=== PATIENT | male | born 1950 | race Caucasian/White ===

== ENCOUNTER 2016-07-09 14:38 | Outpatient (CLI) | payer MEDICARE, OTHER ==
[~2016-07-09] VITALS: Ht 182.9 cm; Wt 92.2 kg
[~2016-07-09 14:38] MED LIST: AZIT250T5 PO; HYDR-3720 PO; LEVO500T69 PO; LISI10TA2 PO; LISI20TA PO; MED FOR HPTN; ONDA4TAB8 PO; OXC5T PO; OXYC-12 PO; OXYC-197 PO; OXYC-272 PO; PRD20T PO; RIVA10TA PO; RIVA15TA PO
[2016-07-09 14:50] VITALS: BP 141/70
[2016-07-09 15:18] LABS: BASOPHILS % (AUTO) 0 % (0-10); EOSINOPHILS # (AUTO) 0.1 10^3/uL (0.0-0.3); EOSINOPHILS % (AUTO) 1 % (0-10); LYMPHOCYTES # (AUTO) 2.6 X 10^3 (1.0-4.0); LYMPHOCYTES % (AUTO) 31 % (12-44); MEAN CORPUSCULAR HEMOGLOBIN 28 PG (25-34); MEAN CORPUSCULAR HGB CONC 35 G/DL (32-36); MEAN CORPUSCULAR VOLUME 82 FL (80-99); MEAN PLATELET VOLUME 10.5 FL (7.4-10.4); MONOCYTES # (AUTO) 0.6 X 10^3 (0.0-1.0); MONOCYTES % (AUTO) 7 % (0-12); NEUTROPHILS # (AUTO) 5.3 X 10^3 (1.8-7.8); NEUTROPHILS % (AUTO) 62 % (42-75); PLATELET COUNT 203 10^3/uL (130-400); RED BLOOD COUNT 4.93 10^6/uL (4.35-5.85); RED CELL DISTRIBUTION WIDTH 13.7 % (10.0-14.5); WHITE BLOOD COUNT 8.6 10^3/uL (4.3-11.0)
[2016-07-09 15:37] LABS: ALANINE AMINOTRANSFERASE 65 U/L (0-55); ANION GAP 9 MMOL/L (5-14); ASPARTATE AMINO TRANSFERASE 24 U/L (5-34); BILIRUBIN,TOTAL 0.4 MG/DL (0.1-1.0); BLOOD UREA NITROGEN 18 MG/DL (7-18); BUN/CREATININE RATIO 21; CALCIUM 8.2 MG/DL (8.5-10.1); CARBON DIOXIDE 21 MMOL/L (21-32); CHLORIDE 104 MMOL/L (98-107); CREATININE SERUM 0.85 MG/DL (0.60-1.30); GFR ESTIMATED > 60; GLUCOSE 104 MG/DL (70-105); POTASSIUM 3.6 MMOL/L (3.6-5.0); SODIUM 134 MMOL/L (135-145); TOTAL PROTEIN 6.4 G/DL (6.4-8.2)
[2016-07-12] MEDS ORDERED: HYDR-3812 PO (14:51)
== END 2016-07-09 15:05 | disposition home or self-care (01) ==
LOC: PREOP 14:38
PROVIDERS: ATTEND Surgery
DX: Z01.812 Encounter for preprocedural laboratory examination (principal); Z11.2 Encounter for screening for other bacterial diseases; K80.20 Calculus of gallbladder without cholecystitis without obstruction
CPT/HCPCS: 36415; 80053; 85025; 87081

== ENCOUNTER 2016-07-12 11:06 | Day surgery (SDC) | payer MEDICARE, OTHER ==
[~2016-07-12] VITALS: Ht 182.9 cm; Wt 92.2 kg
[2016-07-12] MEDS ORDERED: FAMOTIDINE 20MG/2ML IV (PEPCID) IV ONE (11:45)
--- NOTE | 2016-07-12 11:46 | Progress Note-Pre Operative ---
Pre-Operative Progress Note H&P Reviewed The H&P was reviewed, patient examined and no changes noted. Date H&P Reviewed: Jul 12, 2016 Time H&P Reviewed: 11:45 Pre-Operative Diagnosis: gallstones KOFI STERN MD Jul 12, 2016 11:45 am
[2016-07-12] MEDS ORDERED: ceFAZolin 1,000 MG (ANCEF) VIAL ONE (11:49)
[2016-07-12] MEDS ORDERED: metroNIDAZOLE 500MG/100ML IVPB 100 ML ONE (11:50)
[2016-07-12] MEDS ORDERED: NORMAL SALINE (BAXTER MINI) 50 ML IV ONE (11:50)
[2016-07-12] MEDS ORDERED: BUP/EPI 0.25% 1:200,000 (MARCAINE) 30 ML VIAL ONE (11:57)
[2016-07-12 12:00] VITALS: BP 167/77
[2016-07-12] MEDS: LACTATED RINGERS 1,000 ML IV PRN ×2 (12:03→14:28)
[2016-07-12] MEDS ORDERED: CATHETER FLUSH 10 ML SYR IV PRN (12:30)
[2016-07-12] MEDS ORDERED: metroNIDAZOLE 500 MG/100 ML IVPB (PRE-MIX) IV ONE (12:30)
[2016-07-12] MEDS ORDERED: ceFAZolin 1 GM/NS 50 ML IVPB IV ONE ×2 (12:30)
[2016-07-12] MEDS ORDERED: fentaNYL INJECTION 250 MCG/5 ML AMP ONE (13:26)
[2016-07-12] MEDS ORDERED: MIDAZOLAM 2 MG/2 ML (VERSED) VIAL ONE (13:26)
[2016-07-12] MEDS ORDERED: proPOfol 200 MG/20 ML (DIPRIVAN) VIAL IV ONE (13:26)
[2016-07-12] MEDS ORDERED: ROCURONIUM 50 MG/5 ML (ZEMURON) VIAL IV ONE ×2 (13:26→13:46)
[2016-07-12] MEDS ORDERED: LACTATED RINGERS 1,000 ML IV ONE ×2 (13:46→14:35)
[2016-07-12] MEDS ORDERED: ONDANSETRON 4 MG/2 ML (SDV) Z0FRAN ONE (13:46)
[2016-07-12] MEDS ORDERED: morphine INJ 10 MG/ML 1ML (SYR OR VIAL) ONE ×2 (13:51→15:28)
[2016-07-12] MEDS ORDERED: GLYCOPYRROLATE 0.2 MG/ML (ROBINUL) 2 ML VIAL ONE (14:35)
[2016-07-12] MEDS ORDERED: ESMOLOL 100 MG/10 ML (BREVIBLOC) VIAL ONE (14:35)
[2016-07-12] MEDS ORDERED: hydrALAZINE (APESOLINE) 20 MG/ML VIAL ONE (14:35)
[2016-07-12] MEDS ORDERED: NEOSTIGMINE (BLOXIVERZ ) 1 MG/1ML 10 ML VIAL ONE (14:35)
[2016-07-12] MEDS ORDERED: SEVOFLURANE (ULTANE) 15 ML INHAL SOLN ONE (14:45)
[2016-07-12] MEDS ORDERED: KETOROLAC 30 MG/ML VIAL ONE (14:45)
--- NOTE | 2016-07-12 14:50 | Progress Note-Post Operative ---
Post-Operative Progess Note Pre-Operative Diagnosis gallstones Post-Operative Diagnosis same Post-Op Procedure Note Date of Procedure: Jul 12, 2016 Name of Procedure: robotic-assisted cholecystectomy Anesthesia Type Gen. Estimated blood loss (mL): minimal Specimen(s) collected gallbladder KOFI STERN MD Jul 12, 2016 2:50 pm
[2016-07-12] MEDS ORDERED: HYDR-3812 PO (14:51)
--- NOTE | 2016-07-12 14:51 | Discharge Inst-Simple/Standard ---
Discharge Inst-Standard Discharge Medications New, Converted or Re-Newed RX: RX on Chart Patient Instructions/Follow Up Plan of Care/Instructions/FU: dressings off in 48 hours. Incentive spirometry. Follow-up in 3 weeks. Activity as Tolerated: Yes Discharge Diet: No Restrictions KOFI STERN MD Jul 12, 2016 2:51 pm
[2016-07-12] MEDS ORDERED: BUP/EPI 0.25% 1:200,000 (MARCAINE) 30 ML VIAL INJ ONE (15:00)
[2016-07-12] MEDS ORDERED: MEPERIDINE (DEMEROL) INJ 50 MG/ML IVP PRN ×2 (15:15→16:45)
[2016-07-12] MEDS ORDERED: ONDANSETRON 4 MG/2 ML (SDV) Z0FRAN IVP PRN (15:15)
[2016-07-12] MEDS ORDERED: morphine INJ 10 MG/ML 1ML (SYR OR VIAL) IVP PRN (15:15)
[2016-07-12 16:10] VITALS: BP_SYST 100; BP_DIAS 61; BP_DIAS 62
[2016-07-12] MEDS ORDERED: MEPERIDINE (DEMEROL) INJ 100 MG/ML ONE (16:38)
[2016-07-12 16:40] VITALS: BP 130/57
[2016-07-12 17:10] VITALS: BP 118/53
[2016-07-12 17:40] VITALS: BP 118/53
--- NOTE | 2016-07-13 08:03 | OPERATIVE REPORT ---
PROCEDURE PHYSICIAN: KOFI STERN DATE OF PROCEDURE: 07/12/2016 PREOPERATIVE DIAGNOSIS: Cholelithiasis. DIAGNOSIS: Cholelithiasis. OPERATION: Robotic assisted cholecystectomy. SURGEON: Mateus ANESTHESIA: General anesthesia. BLOOD LOSS: Minimal. FLUIDS: 1500 mL of crystalloids. TYPE OF WOUND: Type II (clean-contaminant wound). INDICATION FOR THE PROCEDURE: This gentleman presented with symptomatic gallstones. He was offered robotic assisted cholecystomy. Informed consent was obtained after reviewing the operative details and complications of wound infection and bile leak. DESCRIPTION OF PROCEDURE: He was placed supine on the operating table and general anesthesia induced using an endotracheal tube. A gram of Ancef and 500 mg of Flagyl were administered intravenously as prophylaxis against wound infection. Sequential compression devices were placed around his legs, to minimize the risk of venous thrombosis. Abdomen was prepared and draped in the usual sterile manner. A vertical incision was made on the umbilicus itself and a pre-existing defect gently opened up. A 12 mm trocar was placed by careful inspection and the pneumoperitoneum established to an intra-abdominal pressure of 15 mmHg, using carbon dioxide insufflation. Under direct view. Anatomy was visualized using the high definition, 3 dimensional laparoscope associated with the da Remy system. Under direct view, I placed an 8 mm cannula over each side of the abdomen, followed by a 5 mm trocar over the left upper quadrant. The patient was then turned into steep reverse Trendelenburg position with the right side tilted up. The robotic system was then docked in place. Omentum was found encircling the gallbladder. It was carefully using hook cautery revealing a thickened gallbladder due to chronic cholecystitis. The fundus was retracted cephalad and infundibulum grasped with a pair of Cadiere forceps. Thickened tissue around the neck of the gallbladder was incised using hook cautery, delineating the cystic duct and artery. Both were divided between locking clips. Cholecystectomy was then completed using hook cautery. The gallbladder was then placed in an Endo Catch bag and removed via the umbilical trocar site. The fascia over the umbilical incision was then closed using number 1 Vicryl. The skin was closed using 4-0 Vicryl, in a subcuticular fashion. 0.25% Marcaine with epinephrine was infiltrated along the incisions, both preemptively and at the conclusion of the operation. He tolerated the procedure well, was extubated in the operating room and taken to the recovery room in a stable condition. Job ID: [id number] Dictated Date: 07/12/2016 14:49:57 Hand Drawer In Date: 07/13/2016 07:55:15 / joseph HOWE
== END 2016-07-12 17:40 | disposition home or self-care (01) ==
LOC: SDC 11:06
PROVIDERS: ATTEND Surgery
DX: K80.10 Calculus of gallbladder with chronic cholecystitis without obstruction (principal)
CPT/HCPCS: 88304; 94664

== ENCOUNTER → 2017-01-16 | Outpatient (CLI) | payer MEDICARE ==
[~2017-01-16] MED LIST changes: +CATHETER FLUSH 10 ML SYR IV PRN; +HYDR-3812 PO; +IOHEXOL 350 MG/ML 100 ML (OMNIPAQUE 350) VIAL IV ONE; +NS 100 ML (IVPB) BAG IV ONE
[2017-01-16 11:43] LABS: BLOOD UREA NITROGEN 14 MG/DL (7-18); BUN/CREATININE RATIO 16; CREATININE SERUM 0.87 MG/DL (0.60-1.30); GFR ESTIMATED > 60
--- NOTE | 2017-01-16 15:39 | Diagnostic Imaging Report ---
PROCEDURE: CT chest with contrast only. TECHNIQUE: Multiple contiguous axial images were obtained through the chest after administration of intravenous contrast. INDICATION: Left lung nodule. FINDINGS: There is a calcified granuloma in the medial aspect of the left lower lobe measuring 1 cm. This corresponds with the nodule seen on chest x-ray of 06/30/2016 with no suspicious nodule, mass or consolidation identified. A questionable nodule in the lung base measuring 1.1 cm on the left side appears to relate to a diaphragm based or even possibly lobulated contour of the spleen and not necessarily a true pulmonary nodule. Another nodule measuring 6 mm in the medial aspect of the left lung base posteriorly is also seen. A followup CT scan to ensure stability in 6 months is suggested. The right lung demonstrates no significant consolidation. Minimal atelectasis of the right lung base is seen. The apices demonstrate mild paraseptal emphysema changes. The heart size is normal. The thoracic aorta is normal in caliber. The ean and the mediastinum demonstrate no significant enlarged lymph nodes. The axilla on both sides demonstrate no lymphadenopathy. In the superior lateral aspect of the right hepatic lobe, there is an indeterminate 1.8 cm hypodense lesion seen. Another hypodense lesion in the liver dome measuring 8mm is also noted. The osseous structures demonstrate degenerative changes. IMPRESSION: 1. There are pulmonary nodules in the left lung base 6 mm, indeterminate. Another nodule measuring 1.1 cm projecting into the left lung base could be a lobulation of the spleen or arising from the left hemidiaphragm. [address] chest is recommended to reevaluate these likely benign findings. 2. Incidental note of a 1.8 cm hypodense right hepatic lobe mass. Further evaluation with liver mass protocol enhanced MRI or CT scan of the abdomen is recommended for better evaluation. Dictated by: Dictated on workstation # [id number]
== END ==
LOC: RAD 10:32
PROVIDERS: ATTEND Nurse Practitioner Community Health
DX: R91.8 Other nonspecific abnormal finding of lung field (principal); R16.0 Hepatomegaly, not elsewhere classified
CPT/HCPCS: 36415; 71260; 82565; 84520

== ENCOUNTER 2018-01-02 20:43 | Emergency (ER) | payer MEDICARE ==
[~2018-01-02] VITALS: Ht 182.9 cm; Wt 92.2 kg
[~2018-01-02 20:43] MED LIST changes: +ACHD5005 PO; +AZIT250T12 PO; -AZIT250T5 PO; -CATHETER FLUSH 10 ML SYR IV PRN; -HYDR-3812 PO; -IOHEXOL 350 MG/ML 100 ML (OMNIPAQUE 350) VIAL IV ONE; -NS 100 ML (IVPB) BAG IV ONE
[2018-01-02] MEDS ORDERED: SILD100T (20:53)
[2018-01-02] MEDS ORDERED: OXYC-464 (20:53)
[2018-01-02 21:02] LABS: BILIRUBIN,URINE NEGATIVE (NEGATIVE); CLARITY,URINE CLEAR; COLOR,URINE YELLOW; GLUCOSE, URINE (UA) NEGATIVE (NEGATIVE); KETONES,URINE NEGATIVE (NEGATIVE); LEUKOCYTE ESTERASE ,URINE 1+ (NEGATIVE); NITRITE,URINE NEGATIVE (NEGATIVE); PH,URINE 5 (5-9); PROTEIN,URINE NEGATIVE (NEGATIVE); UROBILINOGEN,URINE 1 MG/DL (NORMAL)
--- NOTE | 2018-01-02 21:05 | ED Back Pain ---
General Chief Complaint: Back Problems Stated Complaint: BACK PAIN Nursing Triage Note: RIGHT FLANK PAIN X2 DAYS, NO INJURY Nursing Sepsis Screen: No Definite Risk Source of Information: Patient Exam Limitations: No Limitations History of Present Illness Date Seen by Provider: Jan 02, 2018 Time Seen by Provider: 20:47 Initial Comments PT ARRIVES VIA POV FROM HOME C/O RIGHT FLANK PAIN SINCE Saturday12/31/17 PAIN COMES AND GOES INITIALLY STATES NOTHING WORSENS OR IMPROVES PAIN, LATER DURING ER STAY, PT STATES PAIN IS WORSE WITH ANY MOVEMENT, AND GOES AWAY WITH REST/REMAINING STILL TOOK 1 OXYCODONE YESTERDAY, STATES IT DID NOT HELP AT ALL. HAS NOT TAKEN ANYTHING ELSE FOR PAIN AT ANY TIME NO RADIATION OF PAIN NO PARESTHESIAS OR MOTOR DEFICITS NO URINARY SYMPTOMS NO NAUSEA/VOMITING NO INJURY, HEAVY LIFTING, ETC. NO HISTORY OF SIMILAR Other Comments PCP: [facility] Allergies and Home Medications Allergies Uncoded Allergies: Bleach (Allergy, Unknown, 04/14/14) Home Medications Cyclobenzaprine HCl 10 Mg Tablet, 10 MG PO Q8H Prescribed by: JOY GARIBAY on 01/02/182216 Lisinopril 20 Mg Tablet, 20 MG PO DAILY, (Reported) Meloxicam 15 Mg Tablet, 15 MG PO DAILY Prescribed by: JOY GARIBAY on 01/02/182216 Patient Home Medication List Home Medication List Reviewed: Yes Constitutional: no symptoms reported Respiratory: no symptoms reported Cardiovascular: no symptoms reported Gastrointestinal: no symptoms reported Genitourinary: no symptoms reported Musculoskeletal: see HPI, back pain Skin: no symptoms reported Psychiatric/Neurological: No Symptoms Reported Past Tmnwldy-Jjumpm-Rqguuu Hx Patient Social History Alcohol Use: Denies Use Recreational Drug Use: No Smoking Status: Current Everyday Smoker (1 PPD) Type Used: Cigarettes 2nd Hand Smoke Exposure: Yes Recent Foreign Travel: No Contact w/Someone Who Travel: No Recent Infectious Disease Expo: No Recent Hopitalizations: No Immunizations Up To Date Tetanus Booster (TDap): Unknown Seasonal Allergies Seasonal Allergies: No Past Medical History Surgeries: Yes (LEFT TOTAL KNEE REPLACEMENT; LEFT ARM REPAIR TEEN--FELL THROUGH A GLASS WINDOW; LEFT QUADRICEPS TENDON REPAIR ) Gallbladder, Joint Replacement, Orthopedic Respiratory: No Cardiac: Yes Hypertension Neurological: No Reproductive Disorders: No Sexually Transmitted Disease: No Genitourinary: No Gastrointestinal: No Musculoskeletal: Yes (LEFT QUADRICEPS TENDON REPAIR; LEFT TOTAL KNEE REPLACEMENT) Endocrine: No HEENT: No Cancer: No Psychosocial: No Integumentary: No Blood Disorders: No Physical Exam Vital Signs Vital Signs - First Documented 01/02/18 20:50 Temp 97.2 Pulse 62 Resp 18 B/P (MAP) 125/107 (113) Pulse Ox 96 O2 Delivery Room Air Capillary Refill : Less Than 3 Seconds General Appearance: WD/WN, Other (UNKEMPT, REEKS OF CIGARETTES,WALKS SLIGHTLY BENT AT WAIST HOLDING RIGHT FLANK.) HEENT: Other (POOR DENTITION/MISSING TEETH) Neck: Normal Inspection Cardiovascular: Regular Rate, Rhythm, No Murmur, Normal Peripheral Pulses Respiratory: Normal Breath Sounds, No Accessory Muscle Use Gastrointestinal: Non Tender, Soft Back: CVA Tenderness (R) Extremity: Normal Range of Motion, Non Tender, No Calf Tenderness, No Pedal Edema Neurologic/Psychiatric: Alert, Oriented x3, No Motor/Sensory Deficits, Normal 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, 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 Norm as Tested Skin: Normal Color, Warm/Dry; No Rash Progress/Results/Core Measures Results/Orders Lab Results Laboratory Tests Test 01/02/18 20:56 01/02/18 21:25 Range/Units Urine Color YELLOW Urine Clarity CLEAR Urine pH 5 5-9 Urine Specific [place] 1.025 H 1.016-1.022 Urine Protein NEGATIVE NEGATIVE Urine Glucose (UA) NEGATIVE NEGATIVE Urine Ketones NEGATIVE NEGATIVE Urine Nitrite NEGATIVE NEGATIVE Urine Bilirubin NEGATIVE NEGATIVE Urine Urobilinogen 1 NORMAL MG/DL Urine Leukocyte Esterase 1+ H NEGATIVE Urine RBC (Auto) 3+ H NEGATIVE Urine RBC 5-10 H /HPF Urine WBC 0-2 /HPF Urine Crystals NONE /LPF Urine Bacteria NONE /HPF Urine Casts NONE /LPF Urine Mucus NEGATIVE /LPF Urine Culture Indicated NO White Blood Count 8.5 4.3-11.0 10^3/uL Red Blood Count 4.78 4.35-5.85 10^6/uL Hemoglobin 14.1 13.3-17.7 G/DL Hematocrit 41 40-54 % Mean Corpuscular Volume 85 80-99 FL Mean Corpuscular Hemoglobin 30 25-34 PG Mean Corpuscular Hemoglobin Concent 35 32-36 G/DL Red Cell Distribution Width 14.9 H 10.0-14.5 % Platelet Count 181 130-400 10^3/uL Mean Platelet Volume 10.4 7.4-10.4 FL Neutrophils (%) (Auto) 58 42-75 % Lymphocytes (%) (Auto) 31 12-44 % Monocytes (%) (Auto) 7 0-12 % Eosinophils (%) (Auto) 4 0-10 % Basophils (%) (Auto) 0 0-10 % Neutrophils # (Auto) 4.9 1.8-7.8 X 10^3 Lymphocytes # (Auto) 2.6 1.0-4.0 X 10^3 Monocytes # (Auto) 0.6 0.0-1.0 X 10^3 Eosinophils # (Auto) 0.3 0.0-0.3 10^3/uL Basophils # (Auto) 0.0 0.0-0.1 10^3/uL Sodium Level 140 135-145 MMOL/L Potassium Level 4.0 3.6-5.0 MMOL/L Chloride Level 109 H 98-107 MMOL/L Carbon Dioxide Level 21 21-32 MMOL/L Anion Gap 10 5-14 MMOL/L Blood Urea Nitrogen 13 7-18 MG/DL Creatinine 0.92 0.60-1.30 MG/DL Estimat Glomerular Filtration Rate > 60 BUN/Creatinine Ratio 14 Glucose Level 105 70-105 MG/DL Calcium Level 8.9 8.5-10.1 MG/DL Total Bilirubin 0.3 0.1-1.0 MG/DL Aspartate Amino Transf (AST/SGOT) 11 5-34 U/L Alanine Aminotransferase (ALT/SGPT) 9 0-55 U/L Alkaline Phosphatase 58 40-136 U/L Total Protein 6.4 6.4-8.2 GM/DL Albumin 4.1 3.2-4.5 GM/DL My Orders Orders - LANI,JOY K DO Ua Culture If Indicated (01/02/18 20:55) Ct Abd/Pelvis Wo(Kidney Stone) (01/02/18 21:14) Cbc With Automated Diff (01/02/18 21:14) Comprehensive Metabolic Panel (01/02/18 21:14) Ketorolac Injection (Toradol Injection) (01/02/18 21:14) Saline Lock/Iv-Start (01/02/18 21:14) Lactated Ringers (Lr 1000 Ml Iv Solution (01/02/18 21:14) Abdomen/Kub 1view (01/02/18 21:14) Orphenadrine Injection (Norflex Injectio (01/02/18 22:15) Rx-Cyclobenzaprine Tablet (Rx-Flexeril T (01/02/18 22:17) Rx-Naproxen (Rx-Naprosyn) (01/02/18 22:17) Orphenadrine Injection (Norflex Injectio (01/02/18 22:26) Rx-Cyclobenzaprine Tablet (Rx-Flexeril T (01/02/18 22:26) Rx-Naproxen (Rx-Naprosyn) (01/02/18 22:26) Medications Given in ED Current Medications Medications Dose Ordered Sig/Arturo Route Start Time Stop Time Status Last Admin Dose Admin Lactated Ringer's 1,000 ml @ 0 mls/hr Q0M ONCE IV 01/02/18 21:14 01/02/18 21:17 DC 01/02/18 21:25 0 MLS/HR Orphenadrine Citrate 60 mg ONCE ONCE IV 01/02/18 22:15 01/02/18 22:28 DC 01/02/18 22:32 60 MG Vital Signs/I&O 01/02/18 01/02/18 01/02/18 20:50 21:25 22:33 Temp 97.2 97.2 97.2 Pulse 62 62 Resp 18 18 B/P (MAP) 125/107 (113) 125/107 (113) Pulse Ox 96 96 O2 Delivery Room Air 01/03/18 00:00 Intake Total 1000 ml Balance 1000 ml Blood Pressure Mean: 113 Progress Progress Note : Progress Note SOME RELIEF OF PAIN WITH TORADOL, BUT HAS NO PAIN WHEN HE IS LAYING STILL. Diagnostic Imaging Comments KUB--NO ACUTE PROCESS, PELVIC CALCIFICATIONS, PENDING RADIOLOGIST REVIEW CT ABDOMEN/PELVIS--HEPATIC AND RENAL CYSTS, NO RENAL /URETERAL STONES OR OBSTRUCTION, NO ACUTE PROCESS PER RADIOLOGIST REPORT @ 2214 Reviewed: Reviewed by Me Departure Impression Primary Impression: Right flank pain Additional Impressions: Microscopic hematuria HEPATIC AND RENAL CYSTS Disposition: HOME, SELF-CARE Condition: Improved Departure-Patient Inst. Referrals: VINCENT DEWITT MD (PCP) Primary Care Physician NUNO RED (Family) Primary Care Physician Patient Instructions: Blood in the Urine (Hematuria), Adult (DC), Cysts in the Liver, Flank Pain (DC) Add. Discharge Instructions: LOTS OF CLEAR LIQUIDS--NO COFFEE, POP OR TEA NO LIFTING OVER 10 LBS, NO TWISTING OR BENDING AT WAIST FOLLOW UP WITH YOUR DR IN 3-4 DAYS IF NO BETTER All discharge instructions reviewed with patient and/or family. Voiced understanding. Scripts Cyclobenzaprine HCl (Cyclobenzaprine HCl) 10 Mg Tablet 10 MG PO Q8H, #15 TAB Prov: JOY GARIBAY DO 01/02/18 Meloxicam (Mobic) 15 Mg Tablet 15 MG PO DAILY, #10 TAB Prov: JOY GARIBAY DO 01/02/18 JOY GARIBAY DO Jan 02, 2018 21:05
[2018-01-02 21:09] LABS: WBC,URINE 0-2 /HPF
[2018-01-02] MEDS ORDERED: LACTATED RINGERS 1,000 ML IV ONE (21:14)
[2018-01-02] MEDS ORDERED: KETOROLAC 30 MG/ML VIAL IVP STA (21:14)
[2018-01-02 21:34] LABS: BASOPHILS % (AUTO) 0 % (0-10); EOSINOPHILS # (AUTO) 0.3 10^3/uL (0.0-0.3); EOSINOPHILS % (AUTO) 4 % (0-10); HEMATOCRIT 41 % (40-54); HEMOGLOBIN 14.1 G/DL (13.3-17.7); LYMPHOCYTES # (AUTO) 2.6 X 10^3 (1.0-4.0); LYMPHOCYTES % (AUTO) 31 % (12-44); MEAN CORPUSCULAR HEMOGLOBIN 30 PG (25-34); MEAN CORPUSCULAR HGB CONC 35 G/DL (32-36); MEAN CORPUSCULAR VOLUME 85 FL (80-99); MEAN PLATELET VOLUME 10.4 FL (7.4-10.4); MONOCYTES # (AUTO) 0.6 X 10^3 (0.0-1.0); MONOCYTES % (AUTO) 7 % (0-12); NEUTROPHILS # (AUTO) 4.9 X 10^3 (1.8-7.8); NEUTROPHILS % (AUTO) 58 % (42-75); PLATELET COUNT 181 10^3/uL (130-400); RED BLOOD COUNT 4.78 10^6/uL (4.35-5.85); RED CELL DISTRIBUTION WIDTH 14.9 % (10.0-14.5); WHITE BLOOD COUNT 8.5 10^3/uL (4.3-11.0)
[2018-01-02 21:57] LABS: ALANINE AMINOTRANSFERASE 9 U/L (0-55); ALBUMIN 4.1 GM/DL (3.2-4.5); ALKALINE PHOSPHATASE 58 U/L (40-136); BILIRUBIN,TOTAL 0.3 MG/DL (0.1-1.0); BUN/CREATININE RATIO 14; CALCIUM 8.9 MG/DL (8.5-10.1); CARBON DIOXIDE 21 MMOL/L (21-32); CHLORIDE 109 MMOL/L (98-107); CREATININE SERUM 0.92 MG/DL (0.60-1.30); GFR ESTIMATED > 60; GLUCOSE 105 MG/DL (70-105); SODIUM 140 MMOL/L (135-145); TOTAL PROTEIN 6.4 GM/DL (6.4-8.2)
--- NOTE | 2018-01-02 22:10 | Diagnostic Imaging Report ---
PROCEDURE: CT urinary tract, rule out kidney stone. TECHNIQUE: Multiple contiguous axial images were obtained through the abdomen and pelvis without the use of intravenous contrast. INDICATION: Right flank pain. COMPARISON: None available. FINDINGS: Evaluation of the abdominal viscera is mildly limited without contrast. Lower chest: Calcified left lower lobe pulmonary granuloma. Otherwise, lungs are clear. No pericardial or pleural effusion. Peritoneum: No free intraperitoneal air or fluid. Liver and biliary system: There are a few scattered subcentimeter cysts within the liver. No concerning hepatic lesion by noncontrast imaging. Cholecystectomy. Spleen and Pancreas: Spleen is normal. Unenhanced pancreas is grossly normal. Adrenals: Normal. tract: No renal or ureteral calculi. A 2.1 x 2.1 cm hypodense cyst is present in the right kidney. There is a partially exophytic 3.6 x 3.8 cm cyst in the lower pole of the left kidney. No obstructive uropathy. Prostate is not enlarged. Urinary bladder is normally distended without wall thickening. Small urachal remnant of the urinary bladder is noted. GI tract: Stomach is normally distended with fluid and food debris and there is no wall thickening. No bowel obstruction. No pericolonic inflammatory changes. Appendix is not seen with certainty. There are no inflammatory changes in the right lower quadrant to suggest acute appendicitis. Vasculature and Lymph nodes: Normal caliber aorta with moderate atherosclerotic plaquing. No abdominal or pelvic lymphadenopathy. Musculoskeletal: No concerning osseous lesion. IMPRESSION: 1. No obstructive uropathy or urinary tract calculi. 2. Cholecystectomy. 3. No bowel obstruction. Dictated by: Dictated on workstation # [id number]
--- NOTE | 2018-01-02 22:12 | Diagnostic Imaging Report ---
INDICATION: Flank pain. COMPARISON: CT abdomen and pelvis performed earlier the same day. FINDINGS: There are no mineralizations along the urinary tract collecting system to suggest renal or ureteral stones. Vascular calcifications are present in the pelvis. Mild degenerative changes in the lumbar spine. Nonobstructive bowel gas pattern. IMPRESSION: No urinary tract calculi.. Dictated by: Dictated on workstation # [id number]
[2018-01-02] MEDS ORDERED: ORPHENADRINE 60 MG/2 ML (NORFLEX) AMP IV ONE (22:15)
[2018-01-02] MEDS ORDERED: MELO15TA14 PO (22:17)
[2018-01-02] MEDS ORDERED: RX-CYCLOBENZAPRINE 10 MG (FLEXERIL) TAB PPK#3 PO STA (22:17)
[2018-01-02] MEDS ORDERED: CYCL10TA9 PO (22:17)
[2018-01-02] MEDS ORDERED: RX-NAPROXEN (NAPROSYN) 250 MG TAB PPK#4 PO STA (22:17)
[2018-01-02] MEDS ORDERED: RX-NAPROXEN (NAPROSYN) 250 MG TAB PPK#4 PO ONE (22:26)
[2018-01-02] MEDS ORDERED: ORPHENADRINE 60 MG/2 ML (NORFLEX) AMP ONE (22:26)
[2018-01-02] MEDS ORDERED: RX-CYCLOBENZAPRINE 10 MG (FLEXERIL) TAB PPK#3 PO ONE (22:26)
[2018-01-02 22:33] VITALS: BP 125/107
== END 2018-01-02 22:33 | disposition home or self-care (01) ==
LOC: EDUNIT# 20:43 → ER 20:46
DX: K76.89 Other specified diseases of liver (principal); N28.1 Cyst of kidney, acquired; R31.21 Asymptomatic microscopic hematuria; R10.9 Unspecified abdominal pain; I10 Essential (primary) hypertension; F17.210 Nicotine dependence, cigarettes, uncomplicated; Z91.048 Other nonmedicinal substance allergy status; Z96.652 Presence of left artificial knee joint; Z98.890 Other specified postprocedural states
CPT/HCPCS: 36415; 74018; 74176; 80053; 81000; 85025; 96361; 96374; 96375

== ENCOUNTER → 2018-01-20 | Outpatient (CLI) | payer MEDICARE ==
[~2018-01-20] MED LIST changes: +CYCL10TA9 PO; +MELO15TA14 PO; +OXYC-464; +SILD100T
--- NOTE | 2018-01-20 12:13 | Diagnostic Imaging Report ---
INDICATION: Injury, pain and popping in the right fifth finger. FINDINGS: Three views of the right fifth finger show no fracture, dislocation, or other acute bony abnormality. There are mild degenerative changes of the interphalangeal joints. IMPRESSION: No acute abnormality is seen. Dictated by: Dictated on workstation # [id number]
== END ==
LOC: RAD 11:38
PROVIDERS: ATTEND Family Medicine
DX: S69.91XA Unspecified injury of right wrist, hand and finger(s), initial encounter (principal)
CPT/HCPCS: 73140

== ENCOUNTER 2018-10-22 06:14 | Outpatient (CLI) | payer MEDICARE ==
[~2018-10-22] VITALS: Ht 182.9 cm; Wt 90.9 kg
[~2018-10-22 06:14] MED LIST changes: -OXYC-197 PO; +OXYC1TAB87 PO
[2018-10-22] MEDS ORDERED: AMLO5TAB9 PO (13:35)
== END 2018-10-22 13:40 | disposition home or self-care (01) ==
LOC: PREOP 06:14
PROVIDERS: ATTEND Specialist
DX: Z01.818 Encounter for other preprocedural examination (principal)

== ENCOUNTER 2018-10-24 06:35 | Day surgery (SDC) | payer MEDICARE ==
[~2018-10-24] VITALS: Ht 182.9 cm; Wt 90.9 kg
[~2018-10-24 06:35] MED LIST changes: +AMLO5TAB9 PO
--- OUTSIDE RECORDS SUMMARY | 2018-10-24 06:40 | XMS REPORT ---
Author Author ALTAF DAVIS [facility] eClinicalWorks Address Unknown Phone Unavailable Care Team Providers Care Seat Cover Installer Name Role Phone ALTAF DAVIS CP Unavailable Allergies, Adverse Reactions, Alerts Substance Reaction Event Type N.K.D.A. Info Not Available Non Drug Allergy Problems Problem Type Condition ICD-9 Code Onset Dates Condition Status Assessment Dyspepsia 536.8 Active Assessment Tobacco dependence 305.1 Active Problem Essential hypertension, benign 401.1 Active Problem Pain in joint, lower leg 719.46 Active Problem Nicotine dependence 305.1 Active Problem Psychosexual dysfunction with inhibited sexual excitement 302.72 Active Assessment Dysphagia 787.20 Active Problem Counseling on substance use and abuse V65.42 Active Problem Nondependent tobacco use disorder 305.1 Active Medications Medication Code System Code Instructions Start Date End Date Status Dosage Percocet [facility] [address]-87 5-325 MG Orally every 6 hrs November 30, 2014 1 tablet as needed Lisinopril [facility] [address]-91 20 MG May 05, 2014 take 1 tablet (20 mg) by oral route once daily Viagra [facility] [address]-83 100 MG Orally Once a day November 02, 2013 1 tablet by Oral route 1 time per day MUST MAKE APPOINTMENT FOR ADDITIONAL REFILLS Omeprazole [facility] [address]-29 20 MG Orally Once a day Mar 15, 2015 1 capsule Chantix Starting Month Mri [facility] [address]-65 0.5 MG X 11 & 1 MG X 42 Orally Once a day Mar 15, 2015 as directed Procedures Procedure Coding System Code Date LAB [facility] CPT-4 NOBLL Mar 15, 2015 VENIPUNCT, ROUTINE* CPT-4 33847 Mar 15, 2015 IMMUNOASSAY,INFECTIOUS AGENT CPT-4 23779 Mar 15, 2015 Office Visit, Est Pt., Level 4 CPT-4 01503 Mar 15, 2015 [facility] VISIT ESTABLISHED PATIENT CPT-4 G0467 Mar 15, 2015 Vital Signs Date/Time: Mar 15, 2015 Temperature 98.0 F Weight 195.4 lbs Height 69 in BMI 28.85 Index Blood Pressure Diastolic 80 mmHg Blood Pressure Systolic 132 mmHg Cardiac Monitoring Heart Rate 80 bpm Results Name Result Date Reference Range Unit Abnormality Flag TSH ----TSH 1.050 [id number] 0.450-4.500 uIU/mL CMP Summary Purpose eClinicalWorks Submission
--- OUTSIDE RECORDS SUMMARY | 2018-10-24 06:40 | XMS REPORT ---
Author Author Migration, Doctor Organization [facility] Address Unknown Phone Unavailable Care Team Providers Care Cabbage Salter Name Role Phone Migration, Doctor Unavailable Unavailable PROBLEMS Type Condition ICD9-CM Code VMF39-IA Code Onset Dates Condition Status SNOMED Code Problem Counseling on substance use and abuse V65.42 Active 294713730 Problem Pain in joint, lower leg 719.46 Active 396312349 Problem Pain in unspecified knee M25.569 Active 852159313 Problem Hypertension, benign I10 Active 34660230 Problem Essential hypertension, benign 401.1 Active 9709869 Problem Nondependent tobacco use disorder 305.1 Active 971507179 Problem Psychosexual dysfunction with inhibited sexual excitement 302.72 Active 386620433003777 Problem Nicotine dependence 305.1 Active 83696967 ALLERGIES No Information ENCOUNTERS Encounter Location Date Diagnosis [place] [id number] [place] [address]32- 9972 May, Essential (primary) hypertension I10 [place] [address] [address] Jan, Mass of lung R91.8 [place] [id number] [place] [address] 06066- 0100 Jan, Essential (primary) hypertension I10 and Lung mass R91.8 [place] [id number] [place] [address] 85976- 4599 Dec, Mass of lung R91.8 [place] [id number] [place] [address] 53420- 4353 Dec, Mass of lung R91.8 [place] [id number] [place] [address] 12447- 5654 Dec, Abnormal lung sounds R09.89 and Acute bronchitis, unspecified organism J20.9 [place] [address] [place] [address] Nov, Essential (primary) hypertension I10 [facility] [id number] [place] [address] 24366- 8315 Nov, [facility] [id number] [place] [address] 56997- 9994 October, Hypertension, benign I10 ; Dysuria R30.0 ; Screen for STD ( sexually transmitted disease) Z11.3 and Exposure to STD Z20.2 [facility] [id number] [place] [address] 16901- 0557 October, Hypertension, benign I10 ; Dysuria R30.0 ; Screen for STD ( sexually transmitted disease) Z11.3 and Exposure to STD Z20.2 [facility] [id number] [place] [address] 82237- 5617 Sep, [facility] [id number] [place] [address] 94217- 6212 Jul, Bronchitis J40 [facility] [id number] [place] [address] 40869 -5793 May, Right upper quadrant pain R10.11 and Chills (without fever ) R68.83 [facility] [id number] [place] [address] 29373- 0151 Mar, Pain in unspecified knee M25.569 [facility] [id number] [place] [address] 47929- 7032 Mar, [facility] [id number] [place] [address] 28066- 9703 Mar, [facility] [id number] [place] [address] 35563- 1956 28 Mar, 2016 [facility] [id number] [place] [address] 62235- 3023 19 Mar, 2016 [facility] [address] [address]- [address] Dec, Pain in right knee M25.561 ; Pain in left knee M25.562 and Other chronic pain G89.29 [facility] [id number] [place] [address] 16384- 0389 Nov, [facility] [id number] [place] [address] 00140- 8757 Sep, [facility] [id number] [place] [address] 23978- 4292 Sep, [facility] [id number] [place] [address] 40023- 8505 Aug, [facility] [id number] [place] [address] 76720- 1845 Jul, [facility] [id number] [place] [address] 57308- 7248 May, [facility] [id number] [place] [address] 81732- 7367 May, [facility] [id number] [place] [address] 75585- 1674 May, Folliculitis L73.9 [facility] [id number] [place] [address] 54867 -3779 May, Contact dermatitis L25.9 [facility] [id number] [place] [address] 98042- 2152 May, [facility] [id number] [place] [address] 36824- 2236 Mar, [facility] [id number] [place] [address] 30581- 5047 05 Mar, 2015 URI, acute 465.9 [facility] [id number] [place] [address] 90891- 3704 15 Mar, 2015 Nicotine dependence 305.1 [facility] [address] 38959- 7568 15 Mar, 2015 Dysphagia 787.20 ; Dyspepsia 536.8 and Tobacco dependence 305.1 [facility] [id number] [place] [address] 58317- 2057 Mar, [facility] [id number] [place] [address] 27245- 7087 Jan, URI, acute 465.9 ; Leg pain 729.5 and ED (erectile dysfunction) 607.84 [facility] [id number] [place] [address] 06278- 8805 Dec, [facility] [id number] [place] [address] 01560- 3767 Nov, [facility] [id number] [place] [address] 48888- 7704 Sep, [facility] [id number] [place] [address] 86148- 5510 Sep, [facility] [id number] [place] [address] 77779- 6068 May, [facility] [id number] [place] [address] 66627- 0942 May, [facility] [id number] [place] [address] 46051- 1597 Dec, [facility] [id number] [place] [address] 32676- 0123 Dec, [facility] [id number] [place] [address] 21193- 1303 October, [facility] [id number] [place] [address] 553426- 8953 October, [facility] [id number] [place] [address] [id number]- 2328 Sep, [facility] [id number] [place] [address] 52717- 0505 Sep, [facility] [place] [facility] [address] [id number] [place] [address] Aug, [facility] [place] [facility] [address] [id number] [place] [address]- 0716 Aug, [facility] [place] [facility] [address] [id number] [place] [address]- 9597 Aug, [facility] [place] [facility] [address] [id number] [place] [address]- 0010 Aug, [facility] [place] [facility] [address] [id number] [place] [address]- 1554 Aug, [facility] [place] [facility] [address] [id number] [place] [address]- 4569 Aug, [facility] [place] [facility] [address] [id number] [place] [address]- 0047 May, [facility] [place] [facility] [address] [id number] [place] [address]- 6208 May, [facility] [place] [facility] [address] [id number] [place] [address]- 1634 May, [facility] [place] [facility] [address] [id number] [place] [address]- 9982 May, [facility] [place] [facility] [address] [id number] [address]- 9[address] May, [facility] [place] [facility] [address] [id number] [place] [address] May, [facility] [place] [facility] [address] [id number] [place] [address]- 5287 May, [facility] [place] [facility] [address] [id number] [place] [address]- 6037 May, [facility] [place] [facility] [address] [id number] [place] [address]- 5840 Mar, [facility] [place] [facility] [address] [id number] [place] [address]- 0736 Mar, [facility] [address] [facility] [id number] [place] [address]- 8[address] Dec, [facility] [address] [facility] [id number] [place] [address]- [address] October, [facility] [address] [facility] [id number] [place] [address]- 25[address] Aug, [facility] [address] [facility] [id number] [place] [address]- 9[address] Aug, [facility] [address] [facility] [id number] [place] [address]- [address] Aug, [facility] [address] [facility] [id number] [place] [address]- [address] Aug, IMMUNIZATIONS No Known Immunizations SOCIAL HISTORY Never Assessed REASON FOR VISIT [facility] [place] PLAN OF CARE VITAL SIGNS MEDICATIONS Medication Instructions Dosage Frequency Start Date End Date Duration Status [place] 5-325 mg take 1 tablet by oral route every 6 hours as needed for pain PRN pain Sep, Active Chantix 1 mg 1 tablet 2 times per day October, Active Lisinopril 20 mg take 1 tablet (20 mg) by oral route once daily May Active Viagra 50 mg 1 tablet by Oral route 1 time per day MUST MAKE APPOINTMENT FOR ADDITIONAL REFILLS October, Active RESULTS No Results PROCEDURES No Known procedures INSTRUCTIONS MEDICATIONS ADMINISTERED No Known Medications MEDICAL (GENERAL) HISTORY Type Description Date Medical History hypertension Medical History pain Surgical History left knee total replacement. Surgical History left arm surgery/repair age 17 Surgical History Gallbladder removal Surgical History Hernia repair Hospitalization History Surgery(s) only
--- OUTSIDE RECORDS SUMMARY | 2018-10-24 06:40 | XMS REPORT ---
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
--- OUTSIDE RECORDS SUMMARY | 2018-10-24 06:40 | XMS REPORT ---
Author NUNO Spence Organization [employer] Address Unknown Phone Unavailable Care Team Providers Care Vibration Analyst Name Role Phone NUNO RED CP Unavailable Allergies No Known Allergies Problems Problem Type Condition Code Onset Dates Condition Status Problem Essential hypertension, benign 401.1 Active Problem Pain in joint, lower leg 719.46 Active Problem Nicotine dependence 305.1 Active Problem Psychosexual dysfunction with inhibited sexual excitement 302.72 Active Problem Counseling on substance use and abuse V65.42 Active Problem Nondependent tobacco use disorder 305.1 Active Medications Medication Code System Code Instructions Start Date End Date Status Dosage Percocet [facility] [address]-35 5-325 MG Orally every 6 hrs. MUST LAST 30 DAYS, MUST HAVE APPT FOR REFILLS November 30, 2014 1 tablet as needed Results No Known Results Summary Purpose [employer] Submission
--- OUTSIDE RECORDS SUMMARY | 2018-10-24 06:40 | XMS REPORT ---
Author NUNO Spence Organization [employer] Address Unknown Phone Unavailable Care Team Providers Care Yard Loader Operator Name Role Phone NUNO RED CP Unavailable [...] Instructions Start Date End Date Status Dosage Bactrim DS [facility] [address]-37 800-160 MG Orally 2 times a day May 11, 2015 May 21, 2015 1 tablet Results No Known Results Summary Purpose [employer] Submission
--- OUTSIDE RECORDS SUMMARY | 2018-10-24 06:40 | XMS REPORT ---
Author Author MONI CA Organization [employer] Address Unknown Phone Unavailable Care Team Providers Care Field Scout Name Role Phone MONI CA CP Unavailable Allergies No Known Allergies Problems Problem Type Condition ICD-9 Code Onset Dates Condition Status Problem Essential hypertension, benign 401.1 Active Problem Pain in joint, lower leg 719.46 Active Problem Nicotine dependence 305.1 Active Problem Psychosexual dysfunction with inhibited sexual excitement 302.72 Active Assessment Nicotine dependence 305.1 Active Problem Counseling on substance use and abuse V65.42 Active Problem Nondependent tobacco use 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
--- OUTSIDE RECORDS SUMMARY | 2018-10-24 06:40 | XMS REPORT ---
Author Author NUNO RED [facility] Address [address] [place] [address] Care Team Providers Care Brim Edge Trimmer Name Role Phone NUNO RED Unavailable PROBLEMS Type Condition ICD9-CM Code AQG59-CX Code Onset Dates Condition Status SNOMED Code Problem Nondependent tobacco use disorder 305.1 Active 155810744 Problem Psychosexual dysfunction with inhibited sexual excitement 302.72 Active 384566304162686 Problem Hypertension, benign I10 Active 49077640 Problem Pain in unspecified knee M25.569 Active 298315795 Problem Pain in joint, lower leg 719.46 Active 256150981 Problem Counseling on substance use and abuse V65.42 Active 217291414 Problem Nicotine dependence 305.1 Active 02448405 Problem Essential hypertension, benign 401.1 Active 3261808 ALLERGIES Unknown Allergies SOCIAL HISTORY No smoking Hx information available PLAN OF CARE VITAL SIGNS MEDICATIONS Unknown Medications RESULTS Name Result Date Reference Range [employer] 2016-04-17 PROCEDURES Procedure Date Ordered Related Diagnosis Body Site No Charge Apr 17, 2016 IMMUNIZATIONS No Known Immunizations
--- OUTSIDE RECORDS SUMMARY | 2018-10-24 06:40 | XMS REPORT ---
Author Author LAYLA XAVIER Organization [facility] Address [address] [place] [address] Care Team Providers Care Veterinary Hospital Attendant Name Role Phone RICHXAVIER Manzanares Unavailable PROBLEMS Type Condition ICD9-CM Code LOY85-UP Code Onset Dates Condition Status SNOMED Code Problem Nondependent tobacco use disorder 305.1 Active 651894198 Problem Psychosexual dysfunction with inhibited sexual excitement 302.72 Active 843206675363299 Problem Hypertension, benign I10 Active 32505844 Problem Pain in unspecified knee M25.569 Active 649419080 Problem Pain in joint, lower leg 719.46 Active 954936984 Problem Counseling on substance use and abuse V65.42 Active 933291722 Problem Nicotine dependence 305.1 Active 44759756 Problem Essential hypertension, benign 401.1 Active 8780547 ALLERGIES Substance Reaction Event Type Date Status N.K.D.A. Unknown Non Drug Allergy May, Unknown SOCIAL HISTORY No smoking Hx information available PLAN OF CARE Activity Details Follow Up prn Reason: VITAL SIGNS Height 69 in 2016-06-30 Weight 204.6 lbs 2016-06-30 Temperature 98.8 degrees Fahrenheit 2016-06-30 Heart Rate 92 bpm 2016-06-30 Respiratory Rate 22 2016-06-30 BMI 30.21 kg/m2 2016-06-30 Blood pressure systolic 140 mmHg 2016-06-30 Blood pressure diastolic 68 mmHg 2016-06-30 MEDICATIONS Medication Instructions Dosage Frequency Start Date End Date Duration Status Percocet 7.5-325 MG Orally every 6 hrs. 1 tablet as needed Nov, Active Lisinopril 20 mg 1 tablet 24h Active RESULTS No Results PROCEDURES Procedure Date Ordered Related Diagnosis Body Site [facility] VISIT ESTABLISHED PATIENT Jun 30, 2016 Office Visit, Est Pt., Level 3 Jun 30, 2016 IMMUNIZATIONS No Known Immunizations
--- OUTSIDE RECORDS SUMMARY | 2018-10-24 06:40 | XMS REPORT ---
Author NUNO Spence Organization [employer] Address Unknown Phone Unavailable Care Team Providers Care Gasateria Attendant Name Role Phone NUNO RED CP Unavailable Allergies, Adverse Reactions, Alerts Substance Reaction Event Type N.K.D.A. Info Not Available Non Drug Allergy Problems Problem Type Condition Code Onset Dates Condition Status Assessment Pain in left knee M25.562 Active Assessment Other chronic pain G89.29 Active Problem Essential hypertension, benign 401.1 Active Problem Pain in joint, lower leg 719.46 Active Problem Nicotine dependence 305.1 Active Problem Psychosexual dysfunction with inhibited sexual excitement 302.72 Active Assessment Pain in right knee M25.561 Active Problem Counseling on substance use and abuse V65.42 Active Problem Nondependent tobacco use disorder 305.1 Active Medications Medication Code System Code Instructions Start Date End Date Status Dosage Percocet [facility] [address]-02 7.5-325 MG Orally every 6 hrs. MUST LAST 30 DAYS , MUST HAVE APPT FOR REFILLS November 30, 2014 1 tablet as needed Bactrim DS [facility] [address]-69 800-160 MG Orally Twice a day January 27, 2016 Feb 06, 2016 1 tablet Lisinopril [facility] 09850562454 20 MG take 1 tablet (20 mg) by oral route once daily Viagra [facility] [address]-32 100 MG Orally Once a day PRN November 02, 2013 1 tablet Procedures Procedure Coding System Code Date Office Visit, Est Pt., Level 3 CPT-4 67633 January 27, 2016 [facility] VISIT ESTABLISHED PATIENT CPT-4 G0467 January 27, 2016 Vital Signs Date/Time: January 27, 2016 Cardiac Monitoring Heart Rate 72 bpm Weight 205.4 lbs Height 69 in BMI 30.33 Index Blood Pressure Diastolic 68 mmHg Blood Pressure Systolic 130 mmHg Results No Known Results Summary Purpose [employer] Submission
--- OUTSIDE RECORDS SUMMARY | 2018-10-24 06:40 | XMS REPORT ---
Author NUNO Spence Organization [employer] Address Unknown Phone Unavailable Care Team Providers Care Him Specialists Name Role Phone NUNO RED CP Unavailable [...] Instructions Start Date End Date Status Dosage Chantix [facility] [address]-92 1 MG Orally Twice a day Apr 16, 2016 October 13, 2016 1 tablet Lisinopril [facility] [address]-52 20 mg Once a day 1 tablet Results No Known Results Summary Purpose [employer] Submission
--- OUTSIDE RECORDS SUMMARY | 2018-10-24 06:40 | XMS REPORT ---
Author NUNO Spence Organization [employer] Address Unknown Phone Unavailable Care Team Providers Care Gas Substation Operator Name Role Phone NUNO RED CP Unavailable Allergies No Known Allergies Problems Problem Type Condition ICD-9 Code Onset Dates Condition Status Problem Pain in joint, lower leg 719.46 Active Problem Counseling on substance use and abuse V65.42 Active Problem Essential hypertension, benign 401.1 Active Problem Nondependent tobacco use disorder 305.1 Active Problem Psychosexual dysfunction with inhibited sexual excitement 302.72 Active Medications Medication Code System Code Instructions Start Date End Date Status Dosage Percocet [facility] [address]-40 5-325 MG Orally every 6 hrs November 30, 2014 1 tablet as needed Results No Known Results Summary Purpose [employer] Submission
--- OUTSIDE RECORDS SUMMARY | 2018-10-24 06:41 | XMS REPORT ---
Author NUNO Spence Organization [employer] Address Unknown Phone Unavailable Care Team Providers Care Land Conservation Specialist Name Role Phone NUNO RED CP Unavailable [...] Percocet [facility] [address]-69 7.5-325 MG Orally every 6 hrs. November 30, 2014 1 tablet as needed Results No Known Results Summary Purpose [employer] Submission
--- OUTSIDE RECORDS SUMMARY | 2018-10-24 06:41 | XMS REPORT ---
Author NUNO Spence Organization [employer] Address Unknown Phone Unavailable Care Team Providers Care Licensed Customs Broker Name Role Phone NUNO RED CP Unavailable Allergies No Known Allergies Problems Problem Type Condition Code Onset Dates Condition Status Problem Essential hypertension, benign 401.1 Active Problem Pain in joint, lower leg 719.46 Active Problem Nicotine dependence 305.1 Active Problem Psychosexual dysfunction with inhibited sexual excitement 302.72 Active Assessment URI, acute 465.9 Active Problem Counseling on substance use and abuse V65.42 Active Problem Nondependent tobacco use disorder 305.1 Active Medications Medication Code System Code Instructions Start Date End Date Status Dosage Viagra [facility] [address]-72 100 MG Orally Once a day PRN November 02, 2013 1 tablet Results No Known Results Summary Purpose [employer] Submission
--- OUTSIDE RECORDS SUMMARY | 2018-10-24 06:41 | XMS REPORT ---
Author NUNO Spence Organization [employer] Address Unknown Phone Unavailable Care Team Providers Care Clinical Material Handler Name Role Phone NUNO RED CP Unavailable [...] Instructions Start Date End Date Status Dosage Lisinopril [facility] [id number] 20 MG take 1 tablet (20 mg) by oral route once daily Results No Known Results Summary Purpose [employer]Works Submission
--- OUTSIDE RECORDS SUMMARY | 2018-10-24 06:41 | XMS REPORT ---
Author Author NUNO RED Organization [employer] Address Unknown Phone Unavailable Care Team Providers Care Financial Adviser Name Role Phone NUNO RED CP Unavailable [...] Date End Date Status Dosage Percocet [facility] [address]-73 5-325 MG Orally every 6 hrs November 30, 2014 1 tablet as needed Results No Known Results Summary Purpose [employer] Submission
--- OUTSIDE RECORDS SUMMARY | 2018-10-24 06:41 | XMS REPORT ---
Author NUNO Spence Organization [employer] Address Unknown Phone Unavailable Care Team Providers Care Truck Loader And Unloader Name Role Phone NUNO RED CP Unavailable Allergies, Adverse Reactions, Alerts Substance Reaction Event Type N.K.D.A. Info Not Available Non Drug Allergy Problems Problem Type Condition Code Onset Dates Condition Status Problem Essential hypertension, benign 401.1 Active Problem Pain in joint, lower leg 719.46 Active Problem Nicotine dependence 305.1 Active Problem Psychosexual dysfunction with inhibited sexual excitement 302.72 Active Assessment Folliculitis L73.9 Active Problem Counseling on substance use and abuse V65.42 Active Problem Nondependent tobacco use disorder 305.1 Active Medications Medication Code System Code Instructions Start Date End Date Status Dosage Lisinopril [facility] 15632590349 20 MG take 1 tablet (20 mg) by oral route once daily Viagra [facility] [address]-84 100 MG Orally Once a day PRN November 02, 2013 1 tablet Percocet [facility] [address]-93 5-325 MG Orally every 6 hrs November 30, 2014 1 tablet as needed Bactrim DS [facility] [address]-46 800-160 MG Orally 2 times a day May 11, 2015 May 21, 2015 1 tablet Procedures Procedure Coding System Code Date Office Visit, Est Pt., Level 3 CPT-4 51057 May 11, 2015 [facility] VISIT ESTABLISHED PATIENT CPT-4 G0467 May 11, 2015 Vital Signs Date/Time: May 11, 2015 Temperature 98.2 F Weight 193.6 lbs Height 69 in BMI 28.59 Index Blood Pressure Diastolic 65 mmHg Blood Pressure Systolic 140 mmHg Cardiac Monitoring Heart Rate 62 bpm Results No Known Results Summary Purpose [employer]ClinicalWorks Submission
--- OUTSIDE RECORDS SUMMARY | 2018-10-24 06:41 | XMS REPORT ---
Author Author NUNO RED Organization [employer] Address Unknown Phone Unavailable Care Team Providers Care Retail Advertising Executive Name Role Phone NUNO RED CP Unavailable [...] Start Date End Date Status Dosage Percocet [facility] [address]-44 5-325 MG Orally every 6 hrs November 30, 2014 1 tablet as needed Results No Known Results Summary Purpose [employer] Submission
--- OUTSIDE RECORDS SUMMARY | 2018-10-24 06:41 | XMS REPORT ---
Author Author NUNO RED [facility] Address [address] [place] [address] Care Team Providers Care A P Supervisor Name Role Phone NUNO RED Unavailable PROBLEMS Type Condition ICD9-CM Code OST83-HW Code Onset Dates Condition Status SNOMED Code Problem Nicotine dependence 305.1 Active 69808960 Problem Essential hypertension, benign 401.1 Active 6369447 Problem Nondependent tobacco use disorder 305.1 Active 036459913 Problem Psychosexual dysfunction with inhibited sexual excitement 302.72 Active 565701982368464 Problem Pain in joint, lower leg 719.46 Active 922548595 Problem Counseling on substance use and abuse V65.42 Active 196137896 ALLERGIES Unknown Allergies SOCIAL HISTORY No smoking Hx information available PLAN OF CARE VITAL SIGNS MEDICATIONS Medication Instructions Dosage Frequency Start Date End Date Duration Status Percocet 7.5-325 MG Orally every 6 hrs. 1 tablet as needed Nov, Active RESULTS No Results PROCEDURES No Known procedures IMMUNIZATIONS No Known Immunizations
--- OUTSIDE RECORDS SUMMARY | 2018-10-24 06:41 | XMS REPORT ---
Author Author XAVIER RICH Organization [employer] Address Unknown Phone Unavailable Care Team Providers Care Staining Machine Operator Name Role Phone XAVIER RICH CP Unavailable Allergies, Adverse Reactions, Alerts Substance Reaction Event Type N.K.D.A. Info Not Available Non Drug Allergy Problems Problem Type Condition Code Onset Dates Condition Status Problem Essential hypertension, benign 401.1 Active Problem Pain in joint, lower leg 719.46 Active Problem Nicotine dependence 305.1 Active Problem Psychosexual dysfunction with inhibited sexual excitement 302.72 Active Assessment Contact dermatitis L25.9 Active Problem Counseling on substance use and abuse V65.42 Active Problem Nondependent tobacco use disorder 305.1 Active Medications Medication Code System Code Instructions Start Date End Date Status Dosage Percocet [facility] [address]-36 5-325 MG Orally every 6 hrs November 30, 2014 1 tablet as needed Omeprazole [facility] [address]-35 20 MG Orally Once a day Mar 15, 2015 1 capsule Lisinopril [facility] 39298687325 20 MG take 1 tablet (20 mg) by oral route once daily Procedures Procedure Coding System Code Date Office Visit, Est Pt., Level 3 CPT-4 30491 May 09, 2015 SOLUMEDROL (UP TO 125 MG) CPT-4 J2930 May 09, 2015 [facility] VISIT ESTABLISHED PATIENT CPT-4 G0467 May 09, 2015 THER/PROPH/DIAG INJ, SC/IM CPT-4 81209 May 09, 2015 Vital Signs Date/Time: May 09, 2015 Temperature 98.3 F Weight 196 lbs Height 69 in BMI 28.94 Index Blood Pressure Diastolic 58 mmHg Blood Pressure Systolic 132 mmHg Cardiac Monitoring Heart Rate 80 bpm Results No Known Results Summary Purpose [employer]ClinicalWorks Submission
--- OUTSIDE RECORDS SUMMARY | 2018-10-24 06:41 | XMS REPORT ---
Author Author NUNO RED [facility] Address [address] [place] [address] Care Team Providers Care Tablet Coater Name Role Phone NUNO RED Unavailable PROBLEMS Type Condition ICD9-CM Code MQQ58-OI Code Onset Dates Condition Status SNOMED Code Problem Pain in joint, lower leg 719.46 Active 027691771 Problem Counseling on substance use and abuse V65.42 Active 455713288 Problem Hypertension, benign I10 Active 77834414 Problem Pain in unspecified knee M25.569 Active 552878882 Problem Nondependent tobacco use disorder 305.1 Active 688449936 Problem Essential hypertension, benign 401.1 Active 1840612 Problem Nicotine dependence 305.1 Active 09916842 Problem Psychosexual dysfunction with inhibited sexual excitement 302.72 Active [id number] ALLERGIES Substance Reaction Event Type Date Status N.K.D.A. Unknown Non Drug Allergy Jul, Unknown SOCIAL HISTORY No smoking Hx information available PLAN OF CARE VITAL SIGNS Height 69 in 2016-07-06 Weight 204.5 lbs 2016-07-06 Temperature 97.9 degrees Fahrenheit 2016-07-06 Heart Rate 78 bpm 2016-07-06 Respiratory Rate 20 2016-07-06 Oximetry 96 % 2016-07-06 BMI 30.20 kg/m2 2016-07-06 Blood pressure systolic 98 mmHg 2016-07-06 Blood pressure diastolic 58 mmHg 2016-07-06 MEDICATIONS Medication Instructions Dosage Frequency Start Date End Date Duration Status Guaifenesin 400 MG Orally every 4 hrs 1 tablet as needed 4h Jul, Active Lisinopril 20 mg 1 tablet 24h Active Percocet 7.5-325 MG Orally every 6 hrs. 1 tablet as needed Nov, Active Doxycycline Hyclate 100 MG Orally every 12 hrs 1 capsule 12h Jul, Jul, 10 days Active PredniSONE 20 mg Orally Once a day 2 tablets 24h Jul, Jul, 05 days Active RESULTS No Results PROCEDURES Procedure Date Ordered Related Diagnosis Body Site MEASURE BLOOD OXYGEN LEVEL Jul 06, 2016 [facility] VISIT ESTABLISHED PATIENT Jul 06, 2016 Office Visit, Est Pt., Level 3 Jul 06, 2016 IMMUNIZATIONS No Known Immunizations
--- OUTSIDE RECORDS SUMMARY | 2018-10-24 06:41 | XMS REPORT ---
Author Author NUNO RED Organization [employer] Address Unknown Phone Unavailable Care Team Providers Care Carder Blankets Name Role Phone NUNO RED CP Unavailable [...] Start Date End Date Status Dosage Percocet [facility] [address]-69 5-325 MG Orally every 6 hrs November 30, 2014 1 tablet as needed Results No Known Results Summary Purpose [employer]ClinicalWorks Submission
--- OUTSIDE RECORDS SUMMARY | 2018-10-24 06:41 | XMS REPORT ---
Author Author NUNO RED [facility] Address [address] [place] [address] Care Team Providers Care Ice Cream Scooper Name Role Phone TEOFILONUNO Unavailable PROBLEMS Type Condition ICD9-CM Code BRH20-PH Code Onset Dates Condition Status SNOMED Code Problem Pain in joint, lower leg 719.46 Active 815328803 Problem Counseling on substance use and abuse V65.42 Active 855196779 Problem Hypertension, benign I10 Active 68218923 Problem Pain in unspecified knee M25.569 Active 613923751 Problem Nondependent tobacco use disorder 305.1 Active 509796921 Problem Essential hypertension, benign 401.1 Active 7382406 Problem Nicotine dependence 305.1 Active 70873295 Problem Psychosexual dysfunction with inhibited sexual excitement 302.72 Active [id number] ALLERGIES No Known Allergies SOCIAL HISTORY Never Assessed PLAN OF CARE VITAL SIGNS Height 69 in 2016-11-23 Weight 196.0 lbs 2016-11-23 Temperature 98.1 degrees Fahrenheit 2016-11-23 Heart Rate 60 bpm 2016-11-23 Respiratory Rate 18 2016-11-23 BMI 28.94 kg/m2 2016-11-23 Blood pressure systolic 138 mmHg 2016-11-23 Blood pressure diastolic 73 mmHg 2016-11-23 MEDICATIONS Medication Instructions Dosage Frequency Start Date End Date Duration Status Percocet 7.5-325 MG Orally every 6 hrs. 1 tablet as needed Sep, Active Lisinopril 20 MG TAKE ONE TABLET BY MOUTH ONCE DAILY 30 Active RESULTS No Results PROCEDURES Procedure Date Ordered Result Body Site [facility] VISIT ESTABLISHED PATIENT November 23, 2016 IMMUNIZATIONS No Known Immunizations MEDICAL (GENERAL) HISTORY Type Description Date Medical History hypertension Medical History pain Surgical History left knee total replacement. Surgical History left arm surgery/repair age 17 Surgical History Gallbladder removal Surgical History Hernia repair Hospitalization History Surgery(s) only
--- OUTSIDE RECORDS SUMMARY | 2018-10-24 06:41 | XMS REPORT ---
Author Author NUNO RED [facility] Address [address] [place] [address] Care Team Providers Care Sole Rounder Name Role Phone NUNO RED Unavailable PROBLEMS Type Condition ICD9-CM Code ZRN09-UY Code Onset Dates Condition Status SNOMED Code Problem Pain in joint, lower leg 719.46 Active 434537996 Problem Counseling on substance use and abuse V65.42 Active 433854493 Problem Hypertension, benign I10 Active 29985449 Problem Pain in unspecified knee M25.569 Active 479060128 Problem Nondependent tobacco use disorder 305.1 Active 438940018 Problem Essential hypertension, benign 401.1 Active 8057402 Problem Nicotine dependence 305.1 Active 39978441 Problem Psychosexual dysfunction with inhibited sexual excitement 302.72 Active [id number] ALLERGIES No Information SOCIAL HISTORY Never Assessed PLAN OF CARE Activity Details Pending Test GC/CHLAM URINE (STATE) VITAL SIGNS MEDICATIONS Unknown Medications RESULTS Name Result Date Reference Range CBC 2016-11-27 WBC 8.0 3.4-10.8 RBC 5.63 4.14-5.80 Hemoglobin 15.9 12.6-17.7 Hematocrit 47.7 37.5-51.0 MCV 85 79-97 MCH 28.2 26.6-33.0 MCHC 33.3 31.5-35.7 RDW 14.6 12.3-15.4 Platelets 172 150-379 Neutrophils 57 Lymphs 32 Monocytes 7 Eos 4 Basos 0 Neutrophils (Absolute) 4.6 1.4-7.0 Lymphs (Absolute) 2.5 0.7-3.1 Monocytes(Absolute) 0.6 0.1-0.9 Eos (Absolute) 0.3 0.0-0.4 Baso (Absolute) 0.0 0.0-0.2 Immature Granulocytes 0 Immature Grans (Abs) 0.0 0.0-0.1 LIPID PANEL 2016-11-27 Cholesterol, Total 191 100-199 Triglycerides 63 0-149 HDL Cholesterol 55 >39 VLDL Cholesterol Trevor 13 5-40 LDL Cholesterol Calc 123 0-99 Comment: CMP 2016-11-27 Glucose, Serum 154 65-99 BUN 16 8-27 Creatinine, Serum 1.01 0.76-1.27 eGFR If NonAfricn Am 78 >59 eGFR If Africn Am 90 >59 BUN/Creatinine Ratio 16 10-24 Sodium, Serum 138 134-144 Potassium, Serum 4.5 3.5-5.2 Chloride, Serum 101 96-106 Carbon Dioxide, Total 20 18-29 Calcium, Serum 9.3 8.6-10.2 Protein, Total, Serum 7.0 6.0-8.5 Albumin, Serum 4.6 3.6-4.8 Globulin, Total 2.4 1.5-4.5 A/G Ratio 1.9 1.2-2.2 Bilirubin, Total 0.2 0.0-1.2 Alkaline Phosphatase, S 83 39-117 AST (SGOT) 13 0-40 ALT (SGPT) 12 0-44 HEP C ANTIBODY (STATE) 2016-11-27 RESULTS negative HIV (STATE) 2016-11-27 HEP B SURFACE ANTIGEN (STATE) 2016-11-27 HEP B ANTIBODY negative HEP B ANTIBODY (RML) HEP B ANTIBODY (STATE) SYPHILIS (STATE) 2016-11-27 PROCEDURES Procedure Date Ordered Result Body Site [facility], 2016 No Charge November 27, 2016 VENIPUNCT, ROUTINE* November 27, 2016 IMMUNIZATIONS No Known Immunizations MEDICAL (GENERAL) HISTORY Type Description Date Medical History hypertension Medical History pain Surgical History left knee total replacement. Surgical History left arm surgery/repair age 17 Surgical History Gallbladder removal Surgical History Hernia repair Hospitalization History Surgery(s) only
--- OUTSIDE RECORDS SUMMARY | 2018-10-24 06:42 | XMS REPORT ---
Author Author NUNO RED Organization [facility] Address [address] [place] [address] Care Team Providers Care Electric Power Line Repairer Name Role Phone NUNO RED Unavailable PROBLEMS Type Condition ICD9-CM Code XXL75-UV Code Onset Dates Condition Status SNOMED Code Problem Pain in joint, lower leg 719.46 Active 775972328 Problem Counseling on substance use and abuse V65.42 Active 618478318 Problem Hypertension, benign I10 Active 59856774 Problem Pain in unspecified knee M25.569 Active 845734941 Problem Nondependent tobacco use disorder 305.1 Active 678628161 Problem Essential hypertension, benign 401.1 Active 5691899 Problem Nicotine dependence 305.1 Active 94662549 Problem Psychosexual dysfunction with inhibited sexual excitement 302.72 Active [id number] ALLERGIES No Known Allergies ENCOUNTERS Encounter Location Date Diagnosis [place] [id number] [place] [address]103[address] 1390 May, Essential (primary) hypertension I10 [place] [id number] [place] [address] 77153- 2536 Jan, Mass of lung R91.8 [place] [id number] [place] [address] 02787- 2639 Jan, Essential (primary) hypertension I10 and Lung mass R91.8 [place] [address] [place] [address] 49435- 4786 Dec, Mass of lung R91.8 [place] [id number] [place] [address] 91418- 0386 Dec, Mass of lung R91.8 [place] [id number] [place] [address] 23799- 4463 Dec, Abnormal lung sounds R09.89 and Acute bronchitis, unspecified organism J20.9 [facility] [id number] [place] [address] 66430- 1879 Nov, Essential (primary) hypertension I10 [facility] [id number] [place] [address] 79008- 4225 Nov, [facility] [id number] [place] [address] 21828- 2520 October, Hypertension, benign I10 ; Dysuria R30.0 ; Screen for STD ( sexually transmitted disease) Z11.3 and Exposure to STD Z20.2 [place] [address] [address]- [address] October, Hypertension, benign I10 ; Dysuria R30.0 ; Screen for STD ( sexually transmitted disease) Z11.3 and Exposure to STD Z20.2 [place] [address] 16098- 1006 Sep, [facility] [id number] [place] [address] 32837- 9534 Jul, Bronchitis J40 [facility] [id number] [place] [address]2214 -[address]77 May, Right upper quadrant pain R10.11 and Chills (without fever ) R68.83 [facility] [id number] [place] [address] 77508- 4455 Mar, Pain in unspecified knee M25.569 [facility] [id number] [place] [address] 04248- 9185 Mar, [place] [address] 0[address]- 2046 Mar, [facility] [id number] [place] [address] 58312- 7243 Mar, [facility] [address] 97200- 8111 Mar, [facility] [address] [place] [address] 08973- 3764 Dec, Pain in right knee M25.561 ; Pain in left knee M25.562 and Other chronic pain G89.29 [facility] [address] [place] [address] 93065- 3129 17 Nov, 2015 [facility] [id number] [place] [address] 25548- 2851 Sep, [facility] [id number] [place] [address] 23818- 6817 Sep, [facility] [id number] [place] [address] 26887- 6460 Aug, [facility] [id number] [place] [address] 48365- 6714 Jul, [facility] [id number] [place] [address] 39550- 4308 May, [facility] [id number] [place] [address] 25720- 6033 May, [facility] [id number] [place] [address] 21084- 2508 May, Folliculitis L73.9 [facility] [address] [place] [address] 27826 -7375 May, Contact dermatitis L25.9 [facility] [id number] [place] [address] 35935- 1945 May, [facility] [address] [place] [address] 65887- 5729 Mar, [facility] [id number] [place] [address] 49868- 4393 Mar, URI, acute 465.9 [facility] [id number] [place] [address] 97174- 2512 15 Mar, 2015 Nicotine dependence 305.1 [facility] [address] [address] 15 Mar, 2015 Dysphagia 787.20 ; Dyspepsia 536.8 and Tobacco dependence 305.1 [facility] [id number] [place] [address] 80771- 6087 09 Mar, 2015 [facility] [id number] [place] [address] 08321- 3978 Jan, URI, acute 465.9 ; Leg pain 729.5 and ED (erectile dysfunction) 607.84 [facility] [id number] [place] [address] 89122- 4075 Dec, [facility] [id number] [place] [address] 63360- 3516 Nov, [facility] [id number] [place] [address] 65131- 2244 Sep, [facility] [id number] [place] [address] 64758- 8532 Sep, [facility] [id number] [place] [address] 41221- 5111 May, [facility] [id number] [place] [address] 29602- 9326 May, [facility] [address] [place] [address] 82275- 7057 Dec, [facility] [id number] [place] [address] 48144- 6117 Dec, [facility] [id number] [place] [address] 73589- 7066 October, [facility] [id number] [place] [address] 52890- 1651 October, [facility] [address] [address]- 5[address] Sep, [facility] [address] [facility] [id number] [place] [address]- [address] 04 Sep, 2013 [facility] [place] [facility] [address] [id number] [place] [address]- 3580 05 Aug, 2013 [facility] [place] [facility] [address] [id number] [place] [address]- 0149 Aug, [facility] [place] [facility] [address] [id number] [place] [address]- 4978 Aug, [facility] [place] [facility] [address] [id number] [place] [address]- 1929 Aug, [facility] [place] [facility] [address] [id number] [place] [address]- 9503 Aug, [facility] [place] [facility] [address] [id number] [place] [address]- 4436 Aug, [facility] [place] [facility] [address] [id number] [place] [address]- 5223 May, [facility] [place] [facility] [address] [id number] [place] [address]- 1030 May, [facility] [place] [facility] [address] [id number] [place] [address]- 6373 May, [facility] [place] [facility] [address] [id number] [place] [address]- 7895 May, [facility] [place] [facility] [address] [id number] [place] [address]- 0405 May, [facility] [place] [facility] [address] [id number] [place] [address]- 3856 May, [facility] [place] [facility] [address] [id number] [place] [address]- 4059 May, [facility] [place] [facility] [address] [id number] [place] [address]- 8081 04 May, 2013 [facility] [place] [facility] [address] [id number] [place] [address]- 0873 Mar, [facility] [address] [facility] [id number] [address]- 2546 Mar, [facility] [address] [facility] [id number] [address]- 2546 Dec, [facility] [address] [facility] [id number], [place] [address]- 2546 October, [facility] [address] [place] [address]- 2546 Aug, [facility] [address] [facility] [id number], [place] [address]- 2546 Aug, [facility] [id number] [address]- 2546 Aug, [facility] [address] [facility] [id number], [place] [address]- 2546 Aug, IMMUNIZATIONS No Known Immunizations SOCIAL HISTORY Never Assessed REASON FOR VISIT f/u CT, No new concerns- Diogenes DUFFY PLAN OF CARE VITAL SIGNS Height 69 in 2017-02-15 Weight 195.3 lbs 2017-02-15 Temperature 98.3 degrees Fahrenheit 2017-02-15 Heart Rate 66 bpm 2017-02-15 Respiratory Rate 20 2017-02-15 BMI 28.84 kg/m2 2017-02-15 Blood pressure systolic 128 mmHg 2017-02-15 Blood pressure diastolic 68 mmHg 2017-02-15 MEDICATIONS Medication Instructions Dosage Frequency Start Date End Date Duration Status Viagra 100 mg Orally Once a day PRN 1 tablet October, Active Percocet 7.5-325 MG Orally every 6 hrs. 1 tablet as needed Jan, Active Lisinopril 20 mg 1 tablet 24h Active RESULTS No Results PROCEDURES Procedure Date Ordered Result Body Site [facility] VISIT ESTABLISHED PATIENT Feb 15, 2017 INSTRUCTIONS MEDICATIONS ADMINISTERED No Known Medications MEDICAL (GENERAL) HISTORY Type Description Date Medical History hypertension Medical History pain Surgical History left knee total replacement. Surgical History left arm surgery/repair age 17 Surgical History Gallbladder removal Surgical History Hernia repair Hospitalization History Surgery(s) only
--- OUTSIDE RECORDS SUMMARY | 2018-10-24 06:42 | XMS REPORT ---
Author Author LAYLABELAXAVIER Organization [facility] Address [address] [place] [address] Care Team Providers Care Grinder Mill Operator Name Role Phone XAVIER RICH Unavailable PROBLEMS Type Condition ICD9-CM Code [id number] Code Onset Dates Condition Status SNOMED Code Problem Pain in joint, lower leg 719.46 Active 658165517 Problem Counseling on substance use and abuse V65.42 Active 689003769 Problem Hypertension, benign I10 Active 88607208 Problem Pain in unspecified knee M25.569 Active 566675311 Problem Nondependent tobacco use disorder 305.1 Active 985942075 Problem Essential hypertension, benign 401.1 Active 5773444 Problem Nicotine dependence 305.1 Active 01237479 Problem Psychosexual dysfunction with inhibited sexual excitement 302.72 Active [id number] ALLERGIES No Known Allergies ENCOUNTERS Encounter Location Date Diagnosis [place] [id number] [place] [address] 77576- 9410 May, Essential (primary) hypertension I10 [place] [id number] [place] [address] 80182- 6057 Jan, Mass of lung R91.8 [place] [id number] [place] [address] 31779- 5351 Jan, Essential (primary) hypertension I10 and Lung mass R91.8 [facility] [id number] [place] [address] 83526- 0498 Dec, Mass of lung R91.8 [place] [id number] [place] [address] 28491- 3374 Dec, Mass of lung R91.8 [place] [id number] [place] [address] 82311- 6416 Dec, Abnormal lung sounds R09.89 and Acute bronchitis, unspecified organism J20.9 [facility] [id number] [place] [address] 72931- 1370 Nov, Essential (primary) hypertension I10 [facility] [id number] [place] [address] 81174- 0554 Nov, [facility] [address] [address]- [address] October, Hypertension, benign I10 ; Dysuria R30.0 ; Screen for STD ( sexually transmitted disease) Z11.3 and Exposure to STD Z20.2 [place] [address] 26198- 0327 October, Hypertension, benign I10 ; Dysuria R30.0 ; Screen for STD ( sexually transmitted disease) Z11.3 and Exposure to STD Z20.2 [place] [address] 50443- 9474 Sep, [facility] [id number] [place] [address] 69921- 6849 Jul, Bronchitis J40 [facility] [id number] [place] [address] 27687 -0711 May, Right upper quadrant pain R10.11 and Chills (without fever ) R68.83 [place] [id number] [place] [address] 67756- 5456 Mar, Pain in unspecified knee M25.569 [facility] [id number] [place] [address] 05092- 6178 Mar, [place] [address] 85125- 3130 Mar, [facility] [id number] [place] [address] 92652- 2828 28 Mar, 2016 [facility] [address] 33927- 4421 Mar, [facility] [address] [place] [address] 81656- 0367 Dec, Pain in right knee M25.561 ; Pain in left knee M25.562 and Other chronic pain G89.29 [facility] [address] [place] [address] 50259- 8287 17 Nov, 2015 [facility] [id number] [place] [address] 96070- 1530 Sep, [facility] [id number] [place] [address] 05401- 7355 Sep, [facility] [id number] [place] [address] 69616- 9413 Aug, [facility] [id number] [place] [address] 94292- 3773 Jul, [facility] [id number] [place] [address] 09390- 8427 May, [facility] [id number] [place] [address] 81501- 8246 May, [facility] [id number] [place] [address] 91012- 0110 May, Folliculitis L73.[address] [facility] [id number] [place] [address] 27031 -8464 May, Contact dermatitis L25.9 [facility] [id number] [place] [address] 61886- 3849 May, [facility] [id number] [place] [address] 77582- 1882 Mar, [facility] [id number] [place] [address] 01916- 0405 Mar, URI, acute 465.9 [facility] [id number] [place] [address] 55309- 9245 15 Mar, 2015 Nicotine dependence 305.1 [facility] [address] [address]- 0289 15 Mar, 2015 Dysphagia 787.20 ; Dyspepsia 536.8 and Tobacco dependence 305.1 [facility] [id number] [place] [address] 29972- 4206 09 Mar, 2015 [facility] [id number] [place] [address] 63357- 8120 Jan, URI, acute 465.9 ; Leg pain 729.5 and ED (erectile dysfunction) 607.84 [facility] [id number] [place] [address] 52262- 3255 Dec, [facility] [id number] [place] [address] 28202- 0198 Nov, [facility] [id number] [place] [address] 31289- 8153 Sep, [facility] [address] [place] [address] 48019- 0994 Sep, [facility] [id number] [place] [address] 72802- 2909 May, [facility] [address] [place] [address]- 2652 May, [facility] [address] [place] [address]- 6194 Dec, [facility] [address] [place] [address]- 3237 Dec, [facility] [id number] [place] [address] 23463- 4801 October, [facility] [id number] [address]- 2336 October, [facility] [address] [place] [address]- 8137 Sep, [facility] [place] [facility] [address] [id number] [place] [address]- 7581 Sep, [facility] [place] [facility] [address] [id number] [place] [address]- 8286 Aug, [facility] [place] [facility] [address] [id number] [place] [address]- 3887 Aug, [facility] [place] [facility] [address] [id number] [place] [address]- 0949 Aug, [facility] [place] [facility] [address] [id number] [place] [address]- 0333 Aug, [facility] [place] [facility] [address] [id number] [place] [address]- 2367 Aug, [facility] [place] [facility] [address] [id number] [place] [address]- 7024 Aug, [facility] [place] [facility] [address] [id number] [place] [address]- 3142 May, [facility] [place] [facility] [address] [id number] [place] [address]- 3329 May, [facility] [place] [facility] [address] [id number] [place] [address]- 1662 May, [facility] [place] [facility] [address] [id number] [place] [address]- 6986 May, [facility] [place] [facility] [address] [id number] [place] [address]- 9203 May, [facility] [place] [facility] [address] [id number] [place] [address]- 7094 May, [facility] [place] [facility] [address] [id number] [place] [address]- 0976 May, [facility] [place] [facility] [address] [id number] [place] [address]- 7280 May, [facility] [place] [facility] [address] [id number], [place] [address]- 2546 Mar, [facility] [address] [facility] [id number], [place] [address] 2546 Mar, [facility] [id number] [address]- 2546 Dec, [facility] [id number] [address] 2546 October, [facility] [id number] [address]- 2546 Aug, [facility] [address] [facility] [id number], [place] [address] 2546 Aug, [facility] [id number] [address] 2546 Aug, [facility] [address] [facility] [id number], [place] [address] 2546 Aug, IMMUNIZATIONS No Known Immunizations SOCIAL HISTORY Never Assessed REASON FOR VISIT cold symptoms, cough, chest congestion x several days, thick white sputum, denies fever--DBennettRN PLAN OF CARE Activity Details Follow Up prn Reason: VITAL SIGNS Height 69 in 2017-01-07 Weight 192 lbs 2017-01-07 Temperature 98.2 degrees Fahrenheit 2017-01-07 Heart Rate 60 bpm 2017-01-07 Respiratory Rate 20 2017-01-07 Oximetry 94 % 2017-01-07 BMI 28.35 kg/m2 2017-01-07 Blood pressure systolic 140 mmHg 2017-01-07 Blood pressure diastolic 62 mmHg 2017-01-07 MEDICATIONS Medication Instructions Dosage Frequency Start Date End Date Duration Status PredniSONE 20 mg Orally Once a day 1 tablet 24h Dec, Dec, 05 days Active Ventolin HFA 108 (90 Base) MCG/ACT Inhalation every 4 hrs 2 puffs as needed 4h Dec, 12 months Active Viagra 100 mg Orally Once a day PRN 1 tablet October, Active Lisinopril 20 MG TAKE ONE TABLET BY MOUTH ONCE DAILY 30 Active Percocet 7.5-325 MG Orally every 6 hrs. 1 tablet as needed Nov, Active RESULTS Name Result Date Reference Range Xray : Chest (IN HOUSE) 2017-01-07 PROCEDURES Procedure Date Ordered Result Body Site CHEST X-RAY January 07, 2017 MEASURE BLOOD OXYGEN LEVEL January 07, 2017 [facility] VISIT ESTABLISHED PATIENT January 07, 2017 INSTRUCTIONS MEDICATIONS ADMINISTERED No Known Medications MEDICAL (GENERAL) HISTORY Type Description Date Medical History hypertension Medical History pain Surgical History left knee total replacement. Surgical History left arm surgery/repair age 17 Surgical History Gallbladder removal Surgical History Hernia repair Hospitalization History Surgery(s) only
--- OUTSIDE RECORDS SUMMARY | 2018-10-24 06:43 | XMS REPORT | CCD ---
Author Author CHAITANYA SOSA Organization Unknown Address [address] [facility] [address] [place], [place] [address] Care Team Providers Care Rn Patient Services Name Role Phone CARMEN PORTILLO, NUNO Pratt Attphys Vital Signs Vital Sign Value Unit Date/Time Recent/Initial? Weight Measured 206 lbs 05/25/2014 10:25 Initial VS Height 72 in 05/25/2014 10:25 Initial VS BMI (Body Mass Index) 27.94 kg/m^2 05/25/2014 10:25 Initial VS BSA (Body Surface Area) 2.18 m^2 05/25/2014 10:25 Initial VS BP Systolic 151 mmHg 06/07/2014 07:30 Initial VS BP Diastolic 58 mmHg 06/07/2014 07:30 Initial VS Respiratory Rate 26 bpm 06/07/2014 07:30 Initial VS Heart Rate 70 bpm 06/07/2014 07:30 Initial VS O2 % BldC Oximetry 92 % 06/07/2014 07:30 Initial VS BP Systolic 108 mmHg 06/07/2014 08:20 Most Recent VS BP Diastolic 71 mmHg 06/07/2014 08:20 Most Recent VS Respiratory Rate 14 bpm 06/07/2014 08:20 Most Recent VS Heart Rate 57 bpm 06/07/2014 08:20 Most Recent VS O2 % BldC Oximetry 96 % 06/07/2014 08:20 Most Recent VS Allergies Allergy Code Allergy Type Reaction Status NKA - NO KNOWN ALLERGIES 0 Drug allergy Active Procedures Procedure Code Procedure Type Date RANGE OF MOTION TESTING 9305 ICD-9 CM, Volume 3 2013 History of Immunizations Immunization Code Date Influenza, seasonal, injectable 141 04/09/2014 Problems Problem Code Start Date Resolved Date Status Primary osteoarthritis of left knee 270274656 Active Post op pain 054588500 04/07/2014 Active Status post knee replacement 3780156391541 04/07/2014 Active Results Unknown or Not Available. Active Medications Unknown or Not Available. Medications Administered During Visit Unknown or Not Available. Encounters Encounter Diagnosis Diagnosis Code Start Date ANKYLOSIS-LOWER LEG 63588 06/07/2014 Social History Smoking Status Code Start Date End Date Current every day smoker 251228954 Patient Decision Aids Unknown or Not Available. Discharge Instructions You were admitted to [facility] on 06/07/2014 with a principal diagnosis of ANKYLOSIS-LOWER LEG. You had the following procedures done: FIXATION OF KNEE JOINT You were discharged from [facility] on 06/07/2014. Should you have any questions prior to discharge, please contact a member of your healthcare team. If you have left the hospital and have any questions, please contact your primary care physician. Chief Complaint and Reason For Visit Chief Complaint Date of Onset ORT KNEE MANIPULATION Function Status Unknown or Not Available. Plan of Care Unknown or Not Available. Referral/Transition of Care Unknown or Not Available.
--- OUTSIDE RECORDS SUMMARY | 2018-10-24 06:43 | XMS REPORT | CCD ---
Author Author RAND HOLGUIN Unknown Address [address] [facility] [address] [place], [place] [address] Care Team Providers Care Nib Assembler Name Role Phone CARMEN PORTILLO, NUNO Pratt Attphys F., SOLIS NASST B., MELIA NASST C., ALEX NASST M., FARSHAD NASST S., ALEX NASST C., DARLEEN NASST B., FARSHAD NASST Vital Signs Vital Sign Value Unit Date/Time Recent/Initial? Weight Measured 208 lbs 03/29/2014 09:25 Initial VS Height 72 in 03/29/2014 09:25 Initial VS BMI (Body Mass Index) 28.21 kg/m^2 03/29/2014 09:25 Initial VS BSA (Body Surface Area) 2.19 m^2 03/29/2014 09:25 Initial VS BP Systolic 161 mmHg 03/29/2014 09:28 Initial VS BP Diastolic 83 mmHg 03/29/2014 09:28 Initial VS Respiratory Rate 16 bpm 03/29/2014 09:28 Initial VS Heart Rate 62 bpm 03/29/2014 09:28 Initial VS O2 % BldC Oximetry 97 % 03/29/2014 09:28 Initial VS Body Temperature 96.2 degrees 03/29/2014 09:28 Initial VS BP Systolic 103 mmHg 04/09/2014 11:03 Most Recent VS BP Diastolic 52 mmHg 04/09/2014 11:03 Most Recent VS Respiratory Rate 18 bpm 04/09/2014 11:03 Most Recent VS Heart Rate 93 bpm 04/09/2014 11:03 Most Recent VS O2 % BldC Oximetry 97 % 04/09/2014 11:03 Most Recent VS Body Temperature 96.4 degrees 04/09/2014 11:03 Most Recent VS Allergies Allergy Code Allergy Type Reaction Status NKA - NO KNOWN ALLERGIES 0 Drug allergy Active Procedures Procedure Code Procedure Type Date TOTAL KNEE REPLACEMENT 8154 ICD-9 CM, Volume 3 04/07/2014 ANESTH INJEC PERIPH NERV 0481 ICD-9 CM, Volume 3 2013 PT GROUP THERAPY 378185627 SNOMED CT 04/09/2014 PT GAIT TRAINING/STAIRS EA [address] 04/09 PT EVALUATION 686252511 SNOMED CT 04/07/2014 KNEE 1V OR 2V 56541017 SNOMED CT 04/07/2014 ^CBC W/AUTO DIFF 7360979 SNOMED CT 04/09/2014 ^CBC W/AUTO DIFF 2439718 SNOMED CT 04/08/2014 BASIC METABOLIC PANEL 810001628 SNOMED CT 04/09/2014 BASIC METABOLIC PANEL 989335968 SNOMED CT 04/08/2014 CBC W/ AUTO DIFF (RFLX MAN DIFF IF IND) 8635691 SNOMED CT 04/09/2014 CBC W/ AUTO DIFF (RFLX MAN DIFF IF IND) 6780155 SNOMED CT 04/08/2014 THERAPEP SUBSEQUENT 461028761 SNOMED CT 04/09/2014 THERAPEP SUBSEQUENT 444496830 SNOMED CT 04/09/2014 THERAPEP SUBSEQUENT 390234893 SNOMED CT 04/09/2014 THERAPEP SUBSEQUENT 113905484 SNOMED CT 04/08/2014 THERAPEP SUBSEQUENT 872164982 SNOMED CT 04/08/2014 THERAPEP SUBSEQUENT 863091013 SNOMED CT 04/08/2014 THERAPEP SUBSEQUENT 004945398 SNOMED CT 04/08/2014 THERAPEP SUBSEQUENT 712749733 SNOMED CT 04/07/2014 THERAPEP TREATMENT 331543507 SNOMED CT 04/07/2014 BAN AERO ECLIPSE TREATMENT 09917924 SNOMED CT 04/07/2014 BAN AERO ECLIPSE TREATMENT 85218185 SNOMED CT 04/07/2014 OXYGEN/HOUR 160279431 SNOMED CT 04/07/2014 BAN AERO ECLIPSE TREATMENT 99199557 SNOMED CT 04/08/2014 BAN AERO ECLIPSE TREATMENT 50491194 SNOMED CT 04/08/2014 BAN AERO ECLIPSE TREATMENT 05488694 SNOMED CT 04/08/2014 BAN AERO ECLIPSE TREATMENT 72965697 SNOMED CT 04/08/2014 BAN AERO ECLIPSE TREATMENT 49539599 SNOMED CT 04/09/2014 BAN AERO ECLIPSE TREATMENT 46244891 SNOMED CT 04/09/2014 History of Immunizations Immunization Code Date Influenza, seasonal, injectable 141 04/09/2014 Problems Problem Code Start Date Resolved Date Status Primary osteoarthritis of left knee 157210509 Active Post op pain 013567679 04/07/2014 Active Status post knee replacement 7838003506034 04/07/2014 Active Results BASIC METABOLIC PANEL - Collect Date/Time: 04/09/2014 06:10 Test Name Code Test Result Test Units Test Ref Range GLUCOSE 2345-7 172 MG/DL L=70 H=100 SODIUM 2951-2 134 MEQ/L L=135 H=148 POTASSIUM 2823-3 3.8 MEQ/L L=3.5 H=5.3 CHLORIDE 2075-0 101 MEQ/L L=96 H=110 CO2 2028-9 22 MEQ/L L=22 H=29 BUN 3094-0 11 MG/DL L=8 H=22 CREATININE 2160-0 0.8 MG/DL L=0.6 H=1.6 CALCIUM 92357-0 8.3 MG/DL L=8.2 H=10.6 AGE 63 yrs GFR NonAA 98 GFR AA 119 eGFR 60 mL/min/1.7 eGFR AA* 60 mL/min/1.7 BASIC METABOLIC PANEL - Collect Date/Time: 04/08/2014 06:20 Test Name Code Test Result Test Units Test Ref Range GLUCOSE 2345-7 155 MG/DL L=70 H=100 SODIUM 2951-2 135 MEQ/L L=135 H=148 POTASSIUM 2823-3 4.0 MEQ/L L=3.5 H=5.3 CHLORIDE 2075-0 103 MEQ/L L=96 H=110 CO2 2028-9 21 MEQ/L L=22 H=29 BUN 3094-0 8 MG/DL L=8 H=22 CREATININE 2160-0 0.8 MG/DL L=0.6 H=1.6 CALCIUM 61175-8 8.2 MG/DL L=8.2 H=10.6 AGE 63 yrs GFR NonAA 98 GFR AA 119 eGFR 60 mL/min/1.7 eGFR AA* 60 mL/min/1.7 CBC W/ AUTO DIFF (RFLX MAN DIFF IF IND) - Collect Date/Time: 04/09/2014 06:10 Test Name Code Test Result Test Units Test Ref Range WBC 28714-0 6.6 TH/CMM L=4.5 H=10.8 RBC 789-8 3.73 ML/CMM L=4.70 H=6.10 HGB 718-7 10.4 G/DL L=14.0 H=18.0 HCT 4544-3 30.9 % L=42.0 H=52.0 MCV 83 FL L=81 H=99 MCH 27.9 PG L=27.0 H=33.0 MCHC 33.7 G/DL L=31.0 H=36.0 RDW SD 44 FL L=36 H=50 RDW CV 14.3 % L=0.0 H=14.8 MPV 10.9 FL L=9.3 H=12.5 PLT 777-3 120 TH/CMM L=130 H=440 NRBC# 0.00 TH/CMM L=0.00 H=0.00 NRBC% 0.0 /100WBC L=0.0 H=2.0 %NEUT 70.6 % %LYMP 15.7 % %MONO 7.6 % %EOS 5.8 % %BASO 0.3 % #NEUT 4.62 TH/CMM L=2.10 H=8.20 #LYMP 1.03 TH/CMM L=0.90 H=5.20 #MONO 0.50 TH/CMM L=0.16 H=1.00 #EOS 0.38 TH/CMM L=0.00 H=0.80 #BASO 0.02 TH/CMM L=0.00 H=0.20 MANUAL DIFF NOT IND N/A CBC W/ AUTO DIFF (RFLX MAN DIFF IF IND) - Collect Date/Time: 04/08/2014 06:20 Test Name Code Test Result Test Units Test Ref Range WBC 98908-1 7.6 TH/CMM L=4.5 H=10.8 RBC 789-8 4.37 ML/CMM L=4.70 H=6.10 HGB 718-7 12.2 G/DL L=14.0 H=18.0 HCT 4544-3 36.8 % L=42.0 H=52.0 MCV 84 FL L=81 H=99 MCH 27.9 PG L=27.0 H=33.0 MCHC 33.2 G/DL L=31.0 H=36.0 RDW SD 44 FL L=36 H=50 RDW CV 14.2 % L=0.0 H=14.8 MPV 11.1 FL L=9.3 H=12.5 PLT 777-3 130 TH/CMM L=130 H=440 NRBC# 0.00 TH/CMM L=0.00 H=0.00 NRBC% 0.0 /100WBC L=0.0 H=2.0 %NEUT 69.4 % %LYMP 18.4 % %MONO 7.7 % %EOS 4.1 % %BASO 0.4 % #NEUT 5.26 TH/CMM L=2.10 H=8.20 #LYMP 1.39 TH/CMM L=0.90 H=5.20 #MONO 0.58 TH/CMM L=0.16 H=1.00 #EOS 0.31 TH/CMM L=0.00 H=0.80 #BASO 0.03 TH/CMM L=0.00 H=0.20 MANUAL DIFF NOT IND N/A Medications Medication Code Dose Units Frequency Route Modification Start Date/Time Stop Date/Time DOCUSATE SODIUM 100 MG [COLACE] CAPSULE 3856808 100 MG BID PO 04/07/2014 06:45 FERROUS SULFATE 325MG TABLET 179575 325 MG ACBID PO 04/07/2014 06:45 ASCORBIC ACID [VITAMIN C] TAB : 500 MG 450889 500 MG DAILY PO 04/07/2014 06:45 VITAMIN (LH SUB FOR ALL MULTIVITAMINS) 504890 1 TAB DAILY PO 04/07/2014 06:45 DIPHENHYDRAMINE (BENADRYL)INJ : 50MG/ML 1377891 50 MG PRN SIVP 04/07/2014 06:45 DIPHENHYDRAMINE (BENADRYL) CAP : 50 MG 0164591 50 MG PRN PO 04/07/2014 06:45 MILK OF MAGNESIA:12OZ 963324 30 ML PRN PO 04/07/2014 06:45 DUONEB [IPRATROPIUM/ALBUTEROL] 0.5/3 MG 0713115 1 EA Q6H INHALE 04/07/2014 06:45 ONDANSETRON [ZOFRAN] INJ 4 MG/2 ML VIAL 535970 4 MG PRN SIVP 04/07/2014 06:45 BISACODYL [DULCOLAX] SUPP : 10 MG 201719 10 MG PRN RECTALLY 04/07/2014 06:45 TEMAZEPAM [RESTORIL] CAPSULE : 7.5 MG 144126 7.5 MG PRN PO 04/07/2014 06:45 TAMSULOSIN [FLOMAX] CAP: 0.4MG 013299 0.4 MG HS PO 04/07/2014 06:45 RIVAROXABAN [XARELTO] TABLET : 10MG 2445936 10 MG DAILY PO 04/09/2014 09:00 HYDROmorphone SYR(DILAUDID)SYR:2MG/ML 288896 1 MG PRN IVP 04/07/2014 06:45 CELECOXIB [CELEBREX] CAPSULE : 200 MG 911642 200 MG BID PO 04/07/2014 06:45 NS 1000 ML IV [PREDEFINED] (7983) 722214 CONT IV IV 04/07/2014 06:45 ~~ NACL 0.9% (7983) 1000ML IV BAG 062047 5097 ML LISINOPRIL 20MG TAB 708403 20 MG DAILY PO 04/07/2014 06:50 PERCOCET 10/325MG TABLET 9347987 1 EA PRN PO 04/09/2014 11:36 Lisinopril 20MG Oral Tablet 077821 20 MILLIGRAMS DAILY ORAL 04/09/2014 14:57 Docusate Sodium 100MG Oral Capsule 5046088 100 MILLIGRAMS TWO TIMES A DAY BY MOUTH 04/09/2014 14:57 Xarelto 10MG Oral Tablet 5079593 10 MILLIGRAMS DAILY BY MOUTH 04/09/2014 14:58 oxyCODONE-acetaminophen 325MG-10MG Oral Tablet 8656738 1 EACH NEEDED BY MOUTH 04/09/2014 14:58 Lisinopril 20MG Oral Tablet 137975 20 MILLIGRAMS DAILY ORAL Medications Administered Medication Dose Units Frequency Route Date/ Time of Last Dose DOCUSATE SODIUM 100 MG [COLACE] CAPSULE 100 MG BID PO 04/09/2014 08:08 FERROUS SULFATE 325MG TABLET 325 MG ACBID PO 04/09/2014 08:08 ASCORBIC ACID [VITAMIN C] TAB : 500 MG 500 MG DAILY PO 04/08/2014 08:54 VITAMIN (LH SUB FOR ALL MULTIVITAMINS) 1 TAB DAILY PO 04/09/2014 08:08 NORCO [HYDROCODONE/APAP] 5/325MG TAB 2 TAB PRN PO 04/09/2014 08:08 DUONEB [IPRATROPIUM/ALBUTEROL] 0.5/3 MG 1 UD Q6H INHALE 04/09/2014 10:52 TAMSULOSIN [FLOMAX] CAP: 0.4MG 0.4 MG HS PO 04/08/2014 21:22 RIVAROXABAN [XARELTO] TABLET : 10MG 10 MG DAILY PO 04/09/2014 08:08 HYDROmorphone SYR(DILAUDID)SYR:2MG/ML 0.5 MG PRN IVP 04/08/2014 14:48 CELECOXIB [CELEBREX] CAPSULE : 200 MG 200 MG BID PO 04/09/2014 08:08 CEFAZOLIN [ANCEF] 2 GM IV PREMIX BAG Q6H IVPB 04/08/2014 01:08 TRANEXAMIC ACID 1000MG/100ML [PREDEFINED X1 IVPB 04/07/2014 09:59 NS 1000 ML IV [PREDEFINED] (7983) CONT IV IV 04/08/2014 01:08 LISINOPRIL 20MG TAB 20 MG DAILY PO 2013 08:08 RIVAROXABAN [XARELTO] TABLET : 10MG 10 MG X1 PO 04/08/2014 06:15 FLUVIRIN (INFLUENZA) VACCINE 0.5ML/DOSE 0.5 ML X1 IM 04/09/2014 11:41 PERCOCET 10/325MG TABLET 1 DOSE PRN PO 04/09 11:41 Encounters Encounter Diagnosis Diagnosis Code Start Date LOC PRIM OSTEOART-L LEG 17946 04/07/2014 Social History Smoking Status Code Start Date End Date Current every day smoker [id number] Patient Decision Aids Patient Decision Aid Non-pharmacological Pain Management Therapies for Adults PATIENT PORTAL ACCESS Pain Management and Opioids Postop pain Discharge Instructions You were admitted to [facility] on 04/07/2014 with a principal diagnosis of LOC PRIM OSTEOART-L LEG. You had the following procedures done: TOTAL KNEE REPLACEMENT ANESTH INJEC PERIPH NERV You were discharged from [facility] on 04/09/2014. Should you have any questions prior to discharge, please contact a member of your healthcare team. If you have left the hospital and have any questions, please contact your primary care physician. HOME MEDICATION INSTRUCTIONS: 24 HOURS AFTER LAST DOSE OF XARELTO START ASPIRIN 325MG ENTERIC COATED TWICE DAILY FOR 30 DAYS CHIEF COMPLAINT: C/O LT KNEE PAIN Chief Complaint and Reason For Visit Chief Complaint Date of Onset L TKR Function Status Unknown or Not Available. Plan of Care Unknown or Not Available. Referral/Transition of Care Unknown or Not Available.
--- OUTSIDE RECORDS SUMMARY | 2018-10-24 06:43 | XMS REPORT | Continuity of Care Document ---
Author Organization Unknown Address Unknown Allergies Active Description Code Type Severity Reaction Onset Reported/Identified Relationship to Patient Clinical Status Yes Bleach Bleach Unknown N/A 04/14/2014 Medications There is no data. Problems Date Dx Coded Attending Type Code Diagnosis Diagnosed By 12/11/2011 Ot 912.4 INSECT BITE SHOULDER/ARM 12/11/2011 Ot E000.8 OTHER EXTERNAL CAUSE STATUS 12/11/2011 Ot E849.0 ACCIDENT IN HOME 12/11/2011 Ot E906.4 NONVENOM ARTHROPOD BITE 08/05/2012 401.1 HYPERTENSION, BENIGN ESSENTIAL 08/05/2012 719.46 KNEE PAIN 08/05/2012 NUNO RED APRN 401.1 HYPERTENSION, BENIGN ESSENTIAL 08/05/2012 NUNO RED APRN 719.46 KNEE PAIN 08/05/2012 NUNO RED APRN 401.1 HYPERTENSION, BENIGN ESSENTIAL 08/05/2012 NUNO RED APRN T 719.46 KNEE PAIN 08/05/2012 NUNO RED APRN 401.1 HYPERTENSION, BENIGN ESSENTIAL 08/05/2012 NUNO RED APRN T 719.46 KNEE PAIN 08/05/2012 NUNO RED APRN 401.1 HYPERTENSION, BENIGN ESSENTIAL 08/05/2012 NUNO RED APRN 719.46 KNEE PAIN 11/18/2012 NUNO RED APRN 302.72 ERECTILE DISORDER 11/18/2012 NUNO RED APRN T 305.1 TOBACCO ABUSE 11/18/2012 NUNO RED APRN V65.42 TOBACCO COUNSELING 11/18/2012 NUNO RED APRN 302.72 ERECTILE DISORDER 11/18/2012 NUNO RED APRN T 305.1 TOBACCO ABUSE 11/18/2012 NUNO RED APRN V65.42 TOBACCO COUNSELING 11/18/2012 NUNO RED APRN 302.72 ERECTILE DISORDER 11/18/2012 NUNO RED APRN T 305.1 TOBACCO ABUSE 11/18/2012 NUNO RED APRN V65.42 TOBACCO COUNSELING 03/04/2013 RACHAEL PORTILLO, ANCELMO Hendrix Ot 305.1 TOBACCO USE DISORDER 03/04/2013 RACHAEL PORTILLO, ANCELMO Hendrix Ot 486 PNEUMONIA, ORGANISM NOS 03/04/2013 ANCELMO CANO MD Ot 786.2 COUGH 04/14/2014 DEEPALI WALTON MD Ot 401.9 HYPERTENSION NOS 04/14/2014 DEEPALI WALTNO MD Ot 453.41 ACUTE VENOUS EMBOLISM THROMBOSIS DEEP 04/14/2014 DEEPALI WALTON MD Ot 729.5 PAIN IN LIMB 04/14/2014 DEEPALI WALTON MD Ot V43.65 KNEE JOINT REPLACEMENT STATUS 06/30/2016 Ot 401.9 HYPERTENSION NOS 06/30/2016 Ot 401.9 HYPERTENSION NOS 06/30/2016 CARMEN PORTILLO, NUNO Pratt Ot 453.41 ACUTE VENOUS EMBOLISM THROMBOSIS DEEP 06/30/2016 REBECCA MAR APRN Ot F17.210 NICOTINE DEPENDENCE, CIGARETTES, UNCOMPL 06/30/2016 REBECCA MAR APRN Ot J20.9 ACUTE BRONCHITIS, UNSPECIFIED 06/30/2016 REBECCA MAR APRN Ot J44.9 CHRONIC OBSTRUCTIVE PULMONARY DISEASE, U 06/30/2016 REBECCA MAR APRN Ot K80.20 CALCULUS OF GALLBLADDER W/O CHOLECYSTITI 06/30/2016 REBECCA MAR APRN Ot R10.11 RIGHT UPPER QUADRANT PAIN 07/03/2016 REBECCA MAR APRN Ot F17.210 NICOTINE DEPENDENCE, CIGARETTES, UNCOMPL 07/03/2016 REBECCA MAR APRN Ot J20.9 ACUTE BRONCHITIS, UNSPECIFIED 07/03/2016 REBECCA MAR APRN Ot J44.9 CHRONIC OBSTRUCTIVE PULMONARY DISEASE, U 07/03/2016 REBECCA MAR APRN Ot K80.20 CALCULUS OF GALLBLADDER W/O CHOLECYSTITI 07/03/2016 REBECCA MAR APRN Ot R10.11 RIGHT UPPER QUADRANT PAIN 07/06/2016 REBECCA MAR APRN Ot F17.210 NICOTINE DEPENDENCE, CIGARETTES, UNCOMPL 07/06/2016 REBECCA MAR APRN Ot J20.9 ACUTE BRONCHITIS, UNSPECIFIED 07/06/2016 REBECCA MAR APRN Ot J44.9 CHRONIC OBSTRUCTIVE PULMONARY DISEASE, U 07/06/2016 REBECCA MAR APRN Ot K80.20 CALCULUS OF GALLBLADDER W/O CHOLECYSTITI 07/06/2016 MARREBECCA ROSE REGINO Ot R10.11 RIGHT UPPER QUADRANT PAIN 07/09/2016 LEENA PORTILLO, KOFI Lemus Ot K80.20 CALCULUS OF GALLBLADDER W/O CHOLECYSTITI 07/09/2016 LEENA PORTILLO, KOFI Lemus Ot Z01.812 ENCOUNTER FOR PREPROCEDURAL LABORATORY E 07/09/2016 LEENA PORTILLO, KOFI Lemus Ot Z11.2 ENCOUNTER FOR SCREENING FOR OTHER BACTER 07/10/2016 KOFI STERN MD Ot K80.20 CALCULUS OF GALLBLADDER W/O CHOLECYSTITI 07/10/2016 LEENA PORTILLO, KOFI Lemus Ot Z01.812 ENCOUNTER FOR PREPROCEDURAL LABORATORY E 07/10/2016 KOFI STERN MD Ot Z11.2 ENCOUNTER FOR SCREENING FOR OTHER BACTER 07/12/2016 LEENA PORTILLO, KOFI Lemus Ot K80.10 CALCULUS OF GALLBLADDER W CHRONIC CHOLEC 07/12/2016 KOFI STERN MD Ot K80.20 CALCULUS OF GALLBLADDER W/O CHOLECYSTITI 07/19/2016 Ot 401.9 HYPERTENSION NOS 07/19/2016 Ot 401.9 HYPERTENSION NOS 07/19/2016 NUNO MORALES MD Ot 453.41 ACUTE VENOUS EMBOLISM THROMBOSIS DEEP 07/19/2016 NUNO MORALES MD Ot 453.41 ACUTE VENOUS EMBOLISM THROMBOSIS DEEP 07/19/2016 Ot 401.9 HYPERTENSION NOS 07/24/2016 LEENA PORTILLO, KOFI Lemus Ot K80.10 CALCULUS OF GALLBLADDER W CHRONIC CHOLEC 07/25/2016 KOFI STERN MD Ot K80.10 CALCULUS OF GALLBLADDER W CHRONIC CHOLEC 07/26/2016 KOFI STERN MD Ot K80.10 CALCULUS OF GALLBLADDER W CHRONIC CHOLEC 08/03/2016 NUNO MORALES MD Ot 453.41 ACUTE VENOUS EMBOLISM THROMBOSIS DEEP 08/03/2016 Ot 401.9 HYPERTENSION NOS 01/14/2017 Ot 401.9 HYPERTENSION NOS 01/14/2017 Ot 401.9 HYPERTENSION NOS 01/14/2017 NUNO MORALES MD Ot 453.41 ACUTE VENOUS EMBOLISM THROMBOSIS DEEP 01/22/2017 NUNO RED Ot R16.0 HEPATOMEGALY, NOT ELSEWHERE CLASSIFIED 01/22/2017 NUNO RED Ot R91.8 OTHER NONSPECIFIC ABNORMAL FINDING OF DYLON 02/07/2017 NUNO RED Ot R16.0 HEPATOMEGALY, NOT ELSEWHERE CLASSIFIED 02/07/2017 NUNO RED Ot R91.8 OTHER NONSPECIFIC ABNORMAL FINDING OF DYLON 01/02/2018 NUNO MORALES MD Ot 453.41 ACUTE VENOUS EMBOLISM THROMBOSIS DEEP 01/02/2018 NUNO RED Ot R16.0 HEPATOMEGALY, NOT ELSEWHERE CLASSIFIED 01/02/2018 NUNO RED Ot R91.8 OTHER NONSPECIFIC ABNORMAL FINDING OF DYLON 01/02/2018 LANI DO, JOY K Ot F17.210 NICOTINE DEPENDENCE, CIGARETTES, UNCOMPL 01/02/2018 LANI DO JOY K Ot I10 ESSENTIAL (PRIMARY) HYPERTENSION 01/02/2018 LANI DO, JOY K Ot K76.89 OTHER SPECIFIED DISEASES OF LIVER 01/02/2018 LANI DO, JOY K Ot N28.1 CYST OF KIDNEY, ACQUIRED 01/02/2018 LANI DO JOY K Ot R10.9 UNSPECIFIED ABDOMINAL PAIN 01/02/2018 LANI DO JOY K Ot R31.21 ASYMPTOMATIC MICROSCOPIC HEMATURIA 01/02/2018 LANI DO JOY K Ot Z91.048 OTHER NONMEDICINAL SUBSTANCE ALLERGY STA 01/02/2018 LANI DO JOY K Ot Z96.652 PRESENCE OF LEFT ARTIFICIAL KNEE JOINT 01/02/2018 LANI DO JOY K Ot Z98.890 OTHER SPECIFIED POSTPROCEDURAL STATES 01/20/2018 KIARA SIDHU DO Ot S69.91XA UNSP INJURY OF RIGHT WRIST, HAND AND FIN 10/17/2018 KIARA SIDHU DO Ot S69.91XA UNSP INJURY OF RIGHT WRIST, HAND AND FIN 10/22/2018 GENNARO CANALES MD Ot Z01.818 ENCOUNTER FOR OTHER PREPROCEDURAL EXAMIN 10/23/2018 GENNARO CANALES MD Ot Z01.818 ENCOUNTER FOR OTHER PREPROCEDURAL EXAMIN Procedures Code Description [place] [address] ROUTINE VENIPUNCTURE 08/12/2012 70036 CBC 08/12/2012 94289 CMP 08/12/2012 07039 LIPID PANEL 08/12/2012 [id number] GFR CALC (RESULT ONLY) 08/12/2012 24337 TSH 08/12/2012 Results Test Result Range Complete blood count (CBC) with automated white blood cell (WBC) differential - 06/30/16 17:50 Blood leukocytes automated count (number/volume) 6.8 10*3/uL 4.3-11.0 Blood erythrocytes automated count (number/volume) 5.11 10*6/uL 4.35-5.85 Venous blood hemoglobin measurement (mass/volume) 14.5 g/dL 13.3-17.7 Blood hematocrit (volume fraction) 43 % 40-54 Automated erythrocyte mean corpuscular volume 83 [foz_us] 80-99 Automated erythrocyte mean corpuscular hemoglobin (mass per erythrocyte) 28 pg 25-34 Automated erythrocyte mean corpuscular hemoglobin concentration measurement ( mass/volume) 34 g/dL 32-36 Automated erythrocyte distribution width ratio 14.0 % 10.0-14.5 Automated blood platelet count (count/volume) 152 10*3/uL 130-400 Automated blood platelet mean volume measurement 10.3 [foz_us] 7.4-10.4 Automated blood neutrophils/100 leukocytes 79 % 42-75 Automated blood lymphocytes/100 leukocytes 12 % 12-44 Blood monocytes/100 leukocytes 8 % 0-12 Automated blood eosinophils/100 leukocytes 1 % 0-10 Automated blood basophils/100 leukocytes 0 % 0-10 Blood neutrophils automated count (number/volume) 5.4 10*3 1.8-7.8 Blood lymphocytes automated count (number/volume) 0.8 10*3 1.0-4.0 Blood monocytes automated count (number/volume) 0.5 10*3 0.0-1.0 Automated eosinophil count 0.1 10*3/uL 0.0-0.3 Automated blood basophil count (count/volume) 0.0 10*3/uL 0.0-0.1 Comprehensive metabolic panel - 06/30/16 17:50 Serum or plasma sodium measurement (moles/volume) 136 mmol/L 135-145 Serum or plasma potassium measurement (moles/volume) 4.2 mmol/L 3.6-5.0 Serum or plasma chloride measurement (moles/volume) 103 mmol/L 98-107 Carbon dioxide 23 mmol/L 21-32 Serum or plasma anion gap determination (moles/volume) 10 mmol/L 5-14 Serum or plasma urea nitrogen measurement (mass/volume) 13 mg/dL 7-18 Serum or plasma creatinine measurement (mass/volume) 1.16 mg/dL 0.60-1.30 Serum or plasma urea nitrogen/creatinine mass ratio 11 NRG Serum or plasma creatinine measurement with calculation of estimated glomerular filtration rate > NRG Serum or plasma glucose measurement (mass/volume) 103 mg/dL 70-105 Serum or plasma calcium measurement (mass/volume) 8.9 mg/dL 8.5-10.1 Serum or plasma total bilirubin measurement (mass/volume) 0.5 mg/dL 0.1-1.0 Serum or plasma alkaline phosphatase measurement (enzymatic activity/volume) 69 U/L 40-136 Serum or plasma aspartate aminotransferase measurement (enzymatic activity/ volume) 15 U/L 5-34 Serum or plasma alanine aminotransferase measurement (enzymatic activity/volume ) 15 U/L 0-55 Serum or plasma protein measurement (mass/volume) 6.8 g/dL 6.4-8.2 Serum or plasma albumin measurement (mass/volume) 4.3 g/dL 3.2-4.5 Serum or plasma amylase measurement (enzymatic activity/volume) - 06/30/16 17: 50 Serum or plasma amylase measurement (enzymatic activity/volume) 22 U /L 25-125 Lipase - 06/30/16 17:50 Lipase 17 U/L 8-78 Complete urinalysis with reflex to culture - 06/30/16 19:40 Urine color determination YELLOW NRG Urine clarity determination CLEAR NRG Urine pH measurement by test strip 5 5-9 Specific gravity of urine by test strip 1.015 1.016- 1.022 Urine protein assay by test strip, semi-quantitative 1+ NEGATIVE Urine glucose detection by automated test strip NEGATIVE NEGATIVE Erythrocytes detection in urine sediment by light microscopy 3+ NEGATIVE Urine ketones detection by automated test strip NEGATIVE NEGATIVE Urine nitrite detection by test strip NEGATIVE NEGATIVE Urine total bilirubin detection by test strip NEGATIVE NEGATIVE Urine urobilinogen measurement by automated test strip (mass/volume) NORMAL NORMAL Urine leukocyte esterase detection by dipstick NEGATIVE NEGATIVE Automated urine sediment erythrocyte count by microscopy (number/high power field) [HPF] NRG Automated urine sediment leukocyte count by microscopy (number/high power field ) [HPF] NRG Bacteria detection in urine sediment by light microscopy NEGATIVE NRG Squamous epithelial cells detection in urine sediment by light microscopy RARE NRG Crystals detection in urine sediment by light microscopy NONE NRG Casts detection in urine sediment by light microscopy PRESENT NRG Mucus detection in urine sediment by light microscopy SMALL NRG Complete urinalysis with reflex to culture NO NRG Hyaline casts detection in urine sediment by light microscopy RARE NRG Renal epithelial cells detection in urine sediment by light microscopy NONE NRG Complete blood count (CBC) with automated white blood cell (WBC) differential - 07/09/16 15:00 Blood leukocytes automated count (number/volume) 8.6 10*3/uL 4.3-11.0 Blood erythrocytes automated count (number/volume) 4.93 10*6/uL 4.35-5.85 Venous blood hemoglobin measurement (mass/volume) 14.0 g/dL 13.3-17.7 Blood hematocrit (volume fraction) 40 % 40-54 Automated erythrocyte mean corpuscular volume 82 [foz_us] 80-99 Automated erythrocyte mean corpuscular hemoglobin (mass per erythrocyte) 28 pg 25-34 Automated erythrocyte mean corpuscular hemoglobin concentration measurement ( mass/volume) 35 g/dL 32-36 Automated erythrocyte distribution width ratio 13.7 % 10.0-14.5 Automated blood platelet count (count/volume) 203 10*3/uL 130-400 Automated blood platelet mean volume measurement 10.5 [foz_us] 7.4-10.4 Automated blood neutrophils/100 leukocytes 62 % 42-75 Automated blood lymphocytes/100 leukocytes 31 % 12-44 Blood monocytes/100 leukocytes 7 % 0-12 Automated blood eosinophils/100 leukocytes 1 % 0-10 Automated blood basophils/100 leukocytes 0 % 0-10 Blood neutrophils automated count (number/volume) 5.3 10*3 1.8-7.8 Blood lymphocytes automated count (number/volume) 2.6 10*3 1.0-4.0 Blood monocytes automated count (number/volume) 0.6 10*3 0.0-1.0 Automated eosinophil count 0.1 10*3/uL 0.0-0.3 Automated blood basophil count (count/volume) 0.0 10*3/uL 0.0-0.1 Comprehensive metabolic panel - 07/09/16 15:00 Serum or plasma sodium measurement (moles/volume) 134 mmol/L 135-145 Serum or plasma potassium measurement (moles/volume) 3.6 mmol/L 3.6-5.0 Serum or plasma chloride measurement (moles/volume) 104 mmol/L 98-107 Carbon dioxide 21 mmol/L 21-32 Serum or plasma anion gap determination (moles/volume) 9 mmol/L 5-14 Serum or plasma urea nitrogen measurement (mass/volume) 18 mg/dL 7-18 Serum or plasma creatinine measurement (mass/volume) 0.85 mg/dL 0.60-1.30 Serum or plasma urea nitrogen/creatinine mass ratio 21 NRG Serum or plasma creatinine measurement with calculation of estimated glomerular filtration rate > NRG Serum or plasma glucose measurement (mass/volume) 104 mg/dL 70-105 Serum or plasma calcium measurement (mass/volume) 8.2 mg/dL 8.5-10.1 Serum or plasma total bilirubin measurement (mass/volume) 0.4 mg/dL 0.1-1.0 Serum or plasma alkaline phosphatase measurement (enzymatic activity/volume) 52 U/L 40-136 Serum or plasma aspartate aminotransferase measurement (enzymatic activity/ volume) 24 U/L 5-34 Serum or plasma alanine aminotransferase measurement (enzymatic activity/volume ) 65 U/L 0-55 Serum or plasma protein measurement (mass/volume) 6.4 g/dL 6.4-8.2 Serum or plasma albumin measurement (mass/volume) 4.0 g/dL 3.2-4.5 Methicillin resistant Staphylococcus aureus (MRSA) screening culture - 15:00 Methicillin resistant Staphylococcus aureus (MRSA) screening culture NEG NRG Complete urinalysis with reflex to culture - 01/02/18 20:56 Urine color determination YELLOW NRG Urine clarity determination CLEAR NRG Urine pH measurement by test strip 5 5-9 Specific gravity of urine by test strip 1.025 1.016- 1.022 Urine protein assay by test strip, semi-quantitative NEGATIVE NEGATIVE Urine glucose detection by automated test strip NEGATIVE NEGATIVE Erythrocytes detection in urine sediment by light microscopy 3+ NEGATIVE Urine ketones detection by automated test strip NEGATIVE NEGATIVE Urine nitrite detection by test strip NEGATIVE NEGATIVE Urine total bilirubin detection by test strip NEGATIVE NEGATIVE Urine urobilinogen measurement by automated test strip (mass/volume) 1 mg/dL NORMAL Urine leukocyte esterase detection by dipstick 1+ NEGATIVE Automated urine sediment erythrocyte count by microscopy (number/high power field) [HPF] NRG Automated urine sediment leukocyte count by microscopy (number/high power field ) [HPF] NRG Bacteria detection in urine sediment by light microscopy NONE NRG Crystals detection in urine sediment by light microscopy NONE NRG Casts detection in urine sediment by light microscopy NONE NRG Mucus detection in urine sediment by light microscopy NEGATIVE NRG Complete urinalysis with reflex to culture NO NRG Complete blood count (CBC) with automated white blood cell (WBC) differential - 01/02/18 21:25 Blood leukocytes automated count (number/volume) 8.5 10*3/uL 4.3-11.0 Blood erythrocytes automated count (number/volume) 4.78 10*6/uL 4.35-5.85 Venous blood hemoglobin measurement (mass/volume) 14.1 g/dL 13.3-17.7 Blood hematocrit (volume fraction) 41 % 40-54 Automated erythrocyte mean corpuscular volume 85 [foz_us] 80-99 Automated erythrocyte mean corpuscular hemoglobin (mass per erythrocyte) 30 pg 25-34 Automated erythrocyte mean corpuscular hemoglobin concentration measurement ( mass/volume) 35 g/dL 32-36 Automated erythrocyte distribution width ratio 14.9 % 10.0-14.5 Automated blood platelet count (count/volume) 181 10*3/uL 130-400 Automated blood platelet mean volume measurement 10.4 [foz_us] 7.4-10.4 Automated blood neutrophils/100 leukocytes 58 % 42-75 Automated blood lymphocytes/100 leukocytes 31 % 12-44 Blood monocytes/100 leukocytes 7 % 0-12 Automated blood eosinophils/100 leukocytes 4 % 0-10 Automated blood basophils/100 leukocytes 0 % 0-10 Blood neutrophils automated count (number/volume) 4.9 10*3 1.8-7.8 Blood lymphocytes automated count (number/volume) 2.6 10*3 1.0-4.0 Blood monocytes automated count (number/volume) 0.6 10*3 0.0-1.0 Automated eosinophil count 0.3 10*3/uL 0.0-0.3 Automated blood basophil count (count/volume) 0.0 10*3/uL 0.0-0.1 Comprehensive metabolic panel - 01/02/18 21:25 Serum or plasma sodium measurement (moles/volume) 140 mmol/L 135-145 Serum or plasma potassium measurement (moles/volume) 4.0 mmol/L 3.6-5.0 Serum or plasma chloride measurement (moles/volume) 109 mmol/L 98-107 Carbon dioxide 21 mmol/L 21-32 Serum or plasma anion gap determination (moles/volume) 10 mmol/L 5-14 Serum or plasma urea nitrogen measurement (mass/volume) 13 mg/dL 7-18 Serum or plasma creatinine measurement (mass/volume) 0.92 mg/dL 0.60-1.30 Serum or plasma urea nitrogen/creatinine mass ratio 14 NRG Serum or plasma creatinine measurement with calculation of estimated glomerular filtration rate > NRG Serum or plasma glucose measurement (mass/volume) 105 mg/dL 70-105 Serum or plasma calcium measurement (mass/volume) 8.9 mg/dL 8.5-10.1 Serum or plasma total bilirubin measurement (mass/volume) 0.3 mg/dL 0.1-1.0 Serum or plasma alkaline phosphatase measurement (enzymatic activity/volume) 58 U/L 40-136 Serum or plasma aspartate aminotransferase measurement (enzymatic activity/ volume) 11 U/L 5-34 Serum or plasma alanine aminotransferase measurement (enzymatic activity/volume ) 9 U/L 0-55 Serum or plasma protein measurement (mass/volume) 6.4 g/dL 6.4-8.2 Serum or plasma albumin measurement (mass/volume) 4.1 g/dL 3.2-4.5 Encounters ACCT No. Visit Date/Time Discharge Status Pt. Type Provider Facility Loc./Unit Complaint [id number] 10/20/2014 12:34:00 10/20/2014 23:59:59 CLS Outpatient NUNO RED APRN [id number] 05/04/2013 15:55:00 05/04/2013 23:59:59 CLS Outpatient NUNO RED APRN [id number] 11/18/2012 15:02:00 11/18/2012 23:59:59 CLS Outpatient NUNO RED APRN [id number] 08/12/2012 08:04:00 08/12/2012 23:59:59 CLS Outpatient NUNO RED APRN [id number] 08/05/2012 14:10:00 08/05/2012 23:59:59 CLS Outpatient [id number] 10/22/2018 06:14:00 10/22/2018 13:40:00 DIS Outpatient GENNARO CANALES MD [facility] PREOP LEFT CATARACT EXTRACTION WITH IOL [id number] 01/20/2018 11:38:00 01/20/2018 23:59:59 CLS Outpatient KIARA SIDHU DO [facility] RAD TRAUMA TO RIGHT PINKY [id number] 01/02/2018 20:46:00 01/02/2018 22:33:00 DIS Emergency JOY GARIBAY DO [facility] ER BACK PAIN [id number] 02/15/2017 15:09:00 02/15/2017 23:59:59 CLS Preadmit NUNO RED [facility] RAD LUNG MASS [id number] 01/16/2017 10:32:00 01/16/2017 23:59:59 CLS Outpatient NUNO RED [facility] RAD MASS OF LUNG R91.8 [id number] 07/12/2016 11:06:00 07/12/2016 17:40:00 DIS Outpatient KOFI STERN MD [facility] GALLSTONES [id number] 07/09/2016 14:38:00 07/09/2016 15:05:00 DIS Outpatient KOFI STERN MD [facility] PREOP GALLSTONES [id number] 06/30/2016 17:06:00 06/30/2016 19:49:00 DIS Emergency REEBCCA MAR APRN [facility] ER STOMACH PAIN [id number] 04/14/2014 12:48:00 04/14/2014 23:59:59 CLS Outpatient NUNO MORALES MD [facility] RAD LEFT CALF PAIN, SWELLING [id number] 04/14/2014 14:14:00 04/14/2014 18:15:00 DIS Emergency DEEPALI WALTON MD [facility] ER POSS BLOOD CLOT LEFT LEG [id number] 03/04/2013 19:48:00 03/04/2013 23:21:00 DIS Emergency RACHAEL PORTILLO, ANCELMO Hendrix [facility] ER CHEST COLD [id number] 10/31/2018 10:15:00 PEN Preadmit GENNARO CANALES MD [facility] CATARACT RIGHT [id number] 10/24/2018 06:35:00 ACT Outpatient GENNARO CANALES MD [facility] LEFT CATARACT [id number] 12/11/2011 20:30:00 Document Registration [id number] 11/07/2011 10:33:00 Document Registration [id number] 11/05/2011 13:53:00 Document Registration
[2018-10-24] MEDS ORDERED: LIDOCAINE PF 1% 2 ML AMP IR PRN (06:45)
[2018-10-24] MEDS ORDERED: TIMOLOL MALEATE 0.5% 5 ML (TIMOPTIC) BTL OU PRN (06:45)
[2018-10-24] MEDS ORDERED: MOXIFLOXACIN OPHTH SOLN 5 MG/ML 0.3 ML SYRINGE OP ONE (06:45)
[2018-10-24] MEDS ORDERED: POVIDONE (BETADINE) OPHTH SOLN 5% 30 ML OP ONE (06:45)
[2018-10-24] MEDS ORDERED: MIDAZOLAM 2 MG/2 ML (VERSED) VIAL ONE (06:46)
[2018-10-24 06:48] VITALS: BP 168/79
[2018-10-24] MEDS: TETRACAINE 0.5% OPHTH SOLN 4 ML BTL (SINGLE DOSE ONLY) OU PRN ×4 (06:51→07:12)
[2018-10-24] MEDS: PHENYLEPHRINE 10% OPHTH (NEO-SYN) 5 ML BTL OU SCH ×3 (07:01→07:12)
[2018-10-24] MEDS: CYCLOPENTOLATE 1% (CYCLOGYL) 2 ML DROPS OP SCH ×3 (07:01→07:12)
--- NOTE | 2018-10-24 07:42 | Ophthalmologist Pre-Op Note ---
Pre-Operative Progress Note H&P Reviewed The H&P was reviewed, patient examined and no changes noted. Date H&P Reviewed: Oct 24, 2018 Time H&P Reviewed: 07:42 Pre-Op Dx Cataract, Left Eye GENNARO CANALES MD Oct 24, 2018 07:42
[2018-10-24] MEDS ORDERED: acetaZOLAMIDE ER 500 MG CAP (DIAMOX SEQUELS) PO ONE (08:00)
--- NOTE | 2018-10-24 08:05 | Ophthalmology Operative Report ---
Cataract removal/placement IOL PREOPERATIVE DIAGNOSIS: Cataract Left Eye POSTOPERATIVE DIAGNOSIS: Cataract Left Eye PROCEDURE: Cataract removal and placement of posterior chamber implant, left eye SURGEON: Victor Manuel Canales ANESTHESIA: Topical with sedation COMPLICATIONS: None ESTIMATED BLOOD LOSS: Minimal DESCRIPTION OF PROCEDURE: After proper informed consent was obtained, the patient, a 67 male, was taken to the Operating Room and the left eye was anesthetized with tetracaine. The left eye was then prepped and draped in the usual manner. A wire lid speculum was placed. A paracentesis was made at the left hand position. Preservative free lidocaine was injected into the anterior chamber followed by viscoelastic. A clear corneal incision was made in the temporal position. A capsulorrhexis was preformed and the central nuclear and cortical material were removed. The posterior capsule was polished and an John 20.5 AU00T0 was placed into the capsular bag. The residual viscoelastic was aspirated and balanced saline solution was injected into the anterior chamber. Moxifloxacin was injected into the anterior chamber. The wound was checked and found to be water tight. The patient tolerated the procedure well without complications. VICTOR MANUEL CANALES MD Oct 24, 2018 08:05
[2018-10-24 08:12] VITALS: BP 163/78
--- NOTE | 2018-10-24 11:56 | Anesthesia-General Post-Op ---
MAC Patient Condition Mental Status/LOC: Same as Preop Cardiovascular: Satisfactory Nausea/Vomiting: Absent Respiratory: Satisfactory Pain: Controlled Complications: Absent Post Op Complications Complications None Follow Up Care/Instructions Patient Instructions None needed. Anesthesiology Discharge Order Discharge Order Patient is doing well, no complaints, stable vital signs, no apparent adverse anesthesia problems. No complications reported per nursing. TJ PATTERSON CRNA Oct 24, 2018 11:56
== END 2018-10-24 08:12 | disposition home or self-care (01) ==
LOC: SDC 06:35
PROVIDERS: ATTEND Specialist
DX: H25.12 Age-related nuclear cataract, left eye (principal); I10 Essential (primary) hypertension; F17.210 Nicotine dependence, cigarettes, uncomplicated; Z79.899 Other long term (current) drug therapy

== ENCOUNTER 2018-10-29 14:30 | Outpatient (CLI) | payer MEDICARE | END 2018-10-29 14:41 | LOC: PREOP 14:30 | PROVIDERS: ATTEND Specialist | DX: Z01.818 Encounter for other preprocedural examination (principal) ==

== ENCOUNTER 2018-10-31 08:37 | Day surgery (SDC) | payer MEDICARE ==
[~2018-10-31] VITALS: Ht 182.9 cm; Wt 90.9 kg
[2018-10-31 08:37] VITALS: BP_SYST 139; BP_SYST 146; BP_DIAS 109; BP_DIAS 64
--- OUTSIDE RECORDS SUMMARY | 2018-10-31 08:44 | XMS REPORT | Continuity of Care Document ---
[...] MD Ot 401.9 HYPERTENSION NOS 04/14/2014 DEEPALI WALTON MD Ot 453.41 ACUTE VENOUS EMBOLISM THROMBOSIS [...] Procedures Code [place] [address] ROUTINE VENIPUNCTURE 08/12/2012 60056 CBC 08/12/2012 94920 CMP 08/12/2012 59424 LIPID PANEL 08/12/2012 0992047 GFR CALC (RESULT ONLY) 08/12/2012 94249 TSH 08/12/2012 Results Test Result Range Complete [...] Status Pt. Type Provider Facility Loc./Unit Complaint [id number] 10/20/2014 12:34:00 10/20/2014 23:59:59 CLS Outpatient NUNO RED APRN [id number] 05/04/2013 15:55:00 05/04/2013 23:59:59 CLS Outpatient NUNO RED APRN [id number] 11/18/2012 15:02:00 11/18/2012 23:59:59 CLS Outpatient NUNO RED APRN [id number] 08/12/2012 08:04:00 08/12/2012 23:59:59 CLS Outpatient NUNO RED APRN [id number] 08/05/2012 14:10:00 08/05/2012 23:59:59 CLS Outpatient [id number] 10/24/2018 06:35:00 10/24/2018 08:12:00 DIS Outpatient GENNARO CANALES MD [facility] LEFT CATARACT [id number] 10/22/2018 06:14:00 10/22/2018 13:40:00 DIS Outpatient GENNARO CANALES MD [facility] PREOP LEFT CATARACT EXTRACTION WITH IOL [id number] 01/20/2018 11:38:00 01/20/2018 23:59:59 CLS Outpatient KIARA SIDHU DO [facility] RAD TRAUMA TO RIGHT PINKY [id number] 01/02/2018 20:46:00 01/02/2018 22:33:00 DIS Emergency JOY GARIBAY DO [facility] ER BACK PAIN [id number] 02/15/2017 15:09:00 02/15/2017 23:59:59 CLS Preadmit NUNO RED [facility] RAD LUNG MASS [id number] 01/16/2017 10:32:00 01/16/2017 23:59:59 CLS Outpatient NUNO RED [facility] RAD MASS OF LUNG R91.8 [id number] 07/12/2016 11:06:00 07/12/2016 17:40:00 DIS Outpatient KOFI STERN MD [facility] SDC GALLSTONES [id number] 07/09/2016 14:38:00 07/09/2016 15:05:00 DIS Outpatient KOFI STERN MD [facility] PREOP GALLSTONES [id number] 06/30/2016 17:06:00 06/30/2016 19:49:00 DIS Emergency REBECCA MAR APRN [facility] ER STOMACH PAIN [id number] 04/14/2014 12:48:00 04/14/2014 23:59:59 CLS Outpatient NUNO MORALES MD [facility] RAD LEFT CALF PAIN, SWELLING [id number] 04/14/2014 14:14:00 04/14/2014 18:15:00 DIS Emergency DEEPALI WALTON MD [facility] ER POSS BLOOD CLOT LEFT LEG [id number] 03/04/2013 19:48:00 03/04/2013 23:21:00 DIS Emergency ANCELMO CANO MD [facility] ER CHEST COLD [id number] 10/31/2018 10:15:00 PEN Preadmit GENNARO CANALES MD [facility] SDC CATARACT RIGHT [id number] 12/11/2011 20:30:00 Document Registration [id number] 11/07/2011 10:33:00 Document Registration [id number] 11/05/2011 13:53:00 Document Registration
[2018-10-31] MEDS ORDERED: POVIDONE (BETADINE) OPHTH SOLN 5% 30 ML OP ONE (08:45)
[2018-10-31] MEDS ORDERED: LIDOCAINE PF 1% 2 ML AMP IR PRN (08:45)
[2018-10-31] MEDS ORDERED: MOXIFLOXACIN OPHTH SOLN 5 MG/ML 0.3 ML SYRINGE OP ONE (08:45)
[2018-10-31] MEDS ORDERED: TIMOLOL MALEATE 0.5% 5 ML (TIMOPTIC) BTL OU PRN (08:45)
[2018-10-31] MEDS: TETRACAINE 0.5% OPHTH SOLN 4 ML BTL (SINGLE DOSE ONLY) OU PRN ×4 (08:56→09:22)
[2018-10-31] MEDS: PHENYLEPHRINE 10% OPHTH (NEO-SYN) 5 ML BTL OU SCH ×3 (09:07→09:22)
[2018-10-31] MEDS: CYCLOPENTOLATE 1% (CYCLOGYL) 2 ML DROPS OP SCH ×3 (09:07→09:22)
[2018-10-31] MEDS ORDERED: MIDAZOLAM 2 MG/2 ML (VERSED) VIAL ONE (09:40)
--- NOTE | 2018-10-31 09:48 | Ophthalmologist Pre-Op Note ---
Pre-Operative Progress Note H&P Reviewed The H&P was reviewed, patient examined and no changes noted. Date H&P Reviewed: October 31, 2018 Time H&P Reviewed: 09:48 Pre-Op Dx Cataract, Right Eye GENNARO CANALES MD October 31, 2018 09:48
[2018-10-31 10:00] VITALS: BP 153/84
--- NOTE | 2018-10-31 10:11 | Ophthalmology Operative Report ---
Cataract removal/placement IOL PREOPERATIVE DIAGNOSIS: Cataract Right Eye POSTOPERATIVE DIAGNOSIS: Cataract Right Eye PROCEDURE: Cataract removal and placement of posterior chamber implant, right eye SURGEON: Victor Manuel Canales ANESTHESIA: Topical with sedation COMPLICATIONS: None ESTIMATED BLOOD LOSS: Minimal DESCRIPTION OF PROCEDURE: After proper informed consent was obtained, the patient, a 68 male, was taken to the Operating Room and the right eye was anesthetized with tetracaine. The right eye was then prepped and draped in the usual manner. A wire lid speculum was placed. A paracentesis was made at the left hand position. Preservative free lidocaine was injected into the anterior chamber followed by viscoelastic. A clear corneal incision was made in the temporal position. A capsulorrhexis was preformed and the central nuclear and cortical material were removed. The posterior capsule was polished and John 21.0 AU00T0 IOL was placed into the capsular bag. The residual viscoelastic was aspirated and balanced saline solution was injected into the anterior chamber. Moxifloxacin was injected into the anterior chamber. The wound was checked and found to be water tight. The patient tolerated the procedure well without complications. VICTOR MANUEL CANALES MD October 31, 2018 10:11
[2018-10-31] MEDS ORDERED: acetaZOLAMIDE ER 500 MG CAP (DIAMOX SEQUELS) PO ONE (10:30)
--- NOTE | 2018-10-31 10:56 | Anesthesia-General Post-Op ---
MAC Patient Condition Mental Status/LOC: Same as Preop Cardiovascular: Satisfactory Nausea/Vomiting: Absent Respiratory: Satisfactory Pain: Controlled Complications: Absent Post Op Complications Complications None Follow Up Care/Instructions Patient Instructions None needed. Anesthesiology Discharge Order Discharge Order Patient was seen after the procedure and he was doing well, no complaints, stable vital signs, no apparent adverse anesthesia problems. JASS HUERTA DO October 31, 2018 10:56
== END 2018-10-31 10:00 | disposition home or self-care (01) ==
LOC: SDC 08:37
PROVIDERS: ATTEND Specialist
DX: H25.11 Age-related nuclear cataract, right eye (principal); I10 Essential (primary) hypertension; Z72.0 Tobacco use; Z79.899 Other long term (current) drug therapy

== ENCOUNTER 2018-11-08 01:11 | Observation (INO) | payer MEDICARE | END 2018-11-08 14:30 | disposition home or self-care (01) | LOC: ER 01:11 → 4TH 03:18 ==

== ENCOUNTER 2020-04-25 05:35 | Outpatient (RCR) | payer MEDICARE ==
[~2020-04-25] VITALS: Ht 182.9 cm; Wt 90.9 kg
[~2020-04-25 05:35] MED LIST changes: +AMLO-250 PO; -AMLO5TAB9 PO; +PANT40TA2 PO
== END 2020-04-25 09:50 | disposition home or self-care (01) ==
LOC: PREOP 05:35
PROVIDERS: ATTEND Surgery
DX: Z01.812 Encounter for preprocedural laboratory examination (principal); R22.2 Localized swelling, mass and lump, trunk; Z20.828 Contact with and (suspected) exposure to other viral communicable diseases
CPT/HCPCS: 87635

== ENCOUNTER 2020-04-27 09:24 | Day surgery (SDC) | payer MEDICARE ==
[2020-04-27] VITALS (8 sets, daily range): BP systolic 107–137; BP diastolic 55–75
[~2020-04-27] VITALS: Ht 182 cm; Wt 90.9 kg
[2020-04-27] MEDS ORDERED: LACTATED RINGERS 1,000 ML IV PRN (09:59)
[2020-04-27] MEDS ORDERED: ceFAZolin 2 GM IV Premixed 50 ML IV ONE (10:00)
[2020-04-27] MEDS ORDERED: BUP/EPI 0.5% 1:200,000 (MARCAINE) 10ML VIAL IJ ONE (10:17)
[2020-04-27] MEDS ORDERED: LIDOCAINE PF 2% 5 ML (XYLOCAINE) VIAL ONE (10:32)
[2020-04-27] MEDS ORDERED: fentaNYL INJECTION 100 MCG/2 ML AMP ONE (10:32)
[2020-04-27] MEDS ORDERED: SEVOFLURANE (ULTANE) 15 ML INHAL SOLN ONE ×3 (10:32→11:35)
[2020-04-27] MEDS ORDERED: MIDAZOLAM 2 MG/2 ML (VERSED) VIAL ONE (10:32)
[2020-04-27] MEDS ORDERED: ROCURONIUM 10 MG/ML 5 ML SYRINGE IV ONE (10:32)
[2020-04-27] MEDS ORDERED: ONDANSETRON 4 MG/2 ML (SDV) Z0FRAN ONE (10:32)
[2020-04-27] MEDS ORDERED: proPOfol 200 MG/20 ML (DIPRIVAN) VIAL IV ONE (10:32)
[2020-04-27] MEDS ORDERED: GLYCOPYRROLATE 0.2 MG/ML (ROBINUL) 2 ML VIAL ONE (10:51)
[2020-04-27] MEDS ORDERED: NEOSTIGMINE 3 MG/3 ML VIAL ONE (10:51)
--- NOTE | 2020-04-27 10:55 | Progress Note-Pre Operative ---
Pre-Operative Progress Note H&P Reviewed The H&P was reviewed, patient examined and no changes noted. Time Seen by Provider: 10:19 Date H&P Reviewed: Apr 27, 2020 Time H&P Reviewed: 10:20 Pre-Operative Diagnosis: Right upper back mass, Left upper chest mass. Both sites marked. NOVA MARIE DO Apr 27, 2020 10:55
--- NOTE | 2020-04-27 11:49 | Progress Note-Post Operative ---
Post-Operative Progess Note Surgeon (s)/Security And Compliance Analyst (s) Surgeon NOVA MARIE DO Security And Compliance Analyst: ADA Singh Pre-Operative Diagnosis Right upper back mass, Left upper chest mass. Both sites marked. Post-Operative Diagnosis same pending path Procedure & Operative Findings Date of Procedure 04/27/20 Procedure Performed/Findings Excision of Right upper back mass, 4.7 cm incision down to fascia Excision of Left upper chest mass, 2.6 cm incision into subQ fat Anesthesia Type GET Estimated Blood Loss Estimated blood loss (mL): scant Specimens/Packing Specimens Removed right upper back mass left upper chest mass NOVA MARIE DO Apr 27, 2020 11:49
[2020-04-27] MEDS ORDERED: HYDR-4226 PO (11:50)
--- NOTE | 2020-04-27 11:51 | Discharge Inst-Surgical ---
Discharge Inst-Surgical Depart Medication/Instructions New, Converted or Re-Newed RX: RX Given to Pt/Family Patient Instructions Follow up Appt: Make appointment for 1 week. [phone] Instructions: No lifting greater than 20 pounds. No strenuous activity. May shower in 24 hours, no tub bath or soaking. Use incentive spirometer at home as directed. No Smoking Skin/Wound Care: May remove bandages in am. You need to leave the Dermabond on incision it will fall off on it's own. Symptoms to Report: Appetite Changes, Extremity Discoloration, Numbness/Tingling, Swelling Increased, Bleeding Excessive, Eyesight Changes, Pain Increased, Urine Color Change, Constipation(Persistent), Fever over 101 degree F, Pain/Pressure in chest, Urinating Difficulty, Cough Up/Vomit Blood, Heart Beat Irreg/Pounding, Pain/Pressure in jaw, Cramps in feet or legs, Lightheadedness, Pain/Pressure in shoulder, Diarrhea(Persistent), Memory Changes Suddenly, Questions/Concerns, Weight gain consecutive days, Dizziness/Fainting, Nausea/Vomiting, Shortness of Breath, Weight gain over 2 pounds If questions or concerns contact your physician Or seek help at emergency department. Activity Activity as Tolerated: Yes Activity Instructions: Avoid Stress to Incision Driving Instructions: No Driving/Refer to Dr. Lozano Discharge Diet: No Restrictions Diet After 24 Hours: Clear Liquid if Nauseous If Any Problems/Questions/Issu: Contact Your Physician, Go to Emergency Room Skin/Wound Care Infection Signs and Symptoms: Increased Redness, Foul Odor of Wound, Increased Drainage, Skin Itchy or Has a Rash, Increased Swelling, Temperature Above 101 F Bathing Instructions: Shower Stitches/[place]/Dermabond Dis: Dermabond, Care of Stitches Ice Pack: Ice On and Off Site NOVA MARIE DO Apr 27, 2020 11:51
--- NOTE | 2020-04-27 11:55 | Anesthesia-General Post-Op ---
General Patient Condition Mental Status/LOC: Same as Preop Cardiovascular: Satisfactory Nausea/Vomiting: Absent Respiratory: Satisfactory Pain: Controlled Complications: Absent Post Op Complications Complications None Follow Up Care/Instructions Patient Instructions None needed. Anesthesia/Patient Condition Patient Condition Patient is doing well, no complaints, stable vital signs, no apparent adverse anesthesia problems. No complications reported per nursing. FRANCHESCA MONTESINOS CRNA Apr 27, 2020 11:55
[2020-04-27] MEDS ORDERED: morphine INJ 10 MG/ML 1ML (SYR OR VIAL) IVP ONE (12:00)
[2020-04-27] MEDS ORDERED: ONDANSETRON 4 MG/2 ML (SDV) Z0FRAN IVP PRN (12:00)
--- NOTE | 2020-04-27 14:18 | OPERATIVE REPORT ---
DATE OF SERVICE: 04/27/2020 PREOPERATIVE DIAGNOSES: 1. Right upper back mass. 2. Left upper chest mass. POSTOPERATIVE DIAGNOSES: Right upper back mass, left upper chest mass, pending pathology. PROCEDURES: 1. Excision of right upper back mass cm incision down to fascia. 2. Excision of left upper chest mass 2.6 cm incision into the subcutaneous fat. SURGEON: French Marie DO SCHOOL BUS MONITOR: Mary Ramirez MS3. ANESTHESIA: General endotracheal tube. SPECIMENS: 1. Right upper back mass. 2. Left upper chest mass. BLOOD LOSS: Scant. FLUIDS: Per anesthesia. POSTOPERATIVE CONDITION: Stable. INDICATION FOR PROCEDURE: The patient is a 61-year-old male who has a mass in his back, it has drained, getting painful. He also noted to have one on the chest today and wanted to get it removed as well. FINDINGS: The patient had a right upper back mass that actually kind of eroded through the skin, so an elliptical incision was then done to remove it completely and he had a left upper chest mass removed and sent to pathology. PROCEDURE NOTE: After informed consent was obtained, the patient was brought to the operating room, placed on the operating table in supine position, sterilely prepped and draped the left chest mass. Infiltrated with local and then made an incision with #15 blade, carried down through the skin into subcutaneous tissue, then deepened down to subcutaneous tissue with Bovie electrocautery until the subcutaneous fat. Encountered what looked like probably an epidermal inclusion cyst, got around this to remove this completely; irrigated with normal saline and then closed this incision with a 2.6 cm incision, closed this with 4-0 undyed Monocryl 3 interrupted subcuticular stitches. Area was cleaned and dried and Dermabond placed. The patient was then carefully rotated in the left lateral decubitus position and the right upper back mass started on. He was sterilely prepped and draped in normal fashion. Local lidocaine was used to infiltrate around this. The area was red and had some like eroded, had erosion and there is ulceration on the skin, elected to do elliptical incision. This incision measured 4.7 cm, removed this completely. I made an incision with #15 blade, carried down to the skin into subcutaneous tissue, then deepened down to subcutaneous tissue with Bovie electrocautery. This went all the way down to the fascia just above the muscle on his back. We took this mass off and could dissect around it. Again, this also like an epidermal inclusion cyst, removed this and completely with a piece of skin attached, passed this off the table and sent to pathology. Copiously irrigated with normal saline. Hemostasis obtained using Bovie electrocautery, then elected to close this with 2-0 nylon three vertical mattress sutures and then did four simple sutures of 3-0 nylon to close, this area was cleaned and dried and dry dressing placed. The patient tolerated the procedure. Sponge, instrument and needle count correct at the end of the case. Both sites were marked and during timeout agreed upon. The patient tolerated the procedure and transferred to recovery room in stable condition. Job ID: [id number] DocumentID: [id number] Dictated Date: 04/27/2020 11:55:11 Quilter Fixer Date: 04/27/2020 14:17:42 Dictated By: FRENCH MARIE DO
== END 2020-04-27 13:15 | disposition home or self-care (01) ==
LOC: SDC 09:24
PROVIDERS: ATTEND Surgery
DX: L72.0 Epidermal cyst (principal); I10 Essential (primary) hypertension; F17.210 Nicotine dependence, cigarettes, uncomplicated; Z79.899 Other long term (current) drug therapy; Z91.09 Other allergy status, other than to drugs and biological substances; Z83.3 Family history of diabetes mellitus; Z82.3 Family history of stroke
CPT/HCPCS: 87081; 88304

== ENCOUNTER → 2020-08-23 | Outpatient (CLI) | payer MEDICARE ==
[~2020-08-23] MED LIST changes: +HYDR-4226 PO
[2020-08-23 11:37] LABS: HEMOGLOBIN 15.3 g/dL (13.3-17.7); MEAN PLATELET VOLUME 9.9 fL (9.0-12.2); WHITE BLOOD COUNT 8.5 10^3/uL (4.3-11.0)
[2020-08-23 11:57] LABS: ALANINE AMINOTRANSFERASE 14 U/L (0-55); ALBUMIN 4.2 GM/DL (3.2-4.5); ALKALINE PHOSPHATASE 65 U/L (40-136); BILIRUBIN,TOTAL 0.3 MG/DL (0.1-1.0); BUN/CREATININE RATIO 16; CALCIUM 8.8 MG/DL (8.5-10.1); CARBON DIOXIDE 21 MMOL/L (21-32); CHLORIDE 105 MMOL/L (98-107); CREATININE SERUM 1.06 MG/DL (0.60-1.30); GFR ESTIMATED > 60; GLUCOSE 111 MG/DL (70-105); POTASSIUM 4.4 MMOL/L (3.6-5.0); SODIUM 134 MMOL/L (135-145); TOTAL PROTEIN 6.9 GM/DL (6.4-8.2)
== END ==
LOC: CARD 11:12
PROVIDERS: ATTEND Family Medicine
DX: R00.1 Bradycardia, unspecified (principal); I10 Essential (primary) hypertension; R41.0 Disorientation, unspecified
CPT/HCPCS: 36415; 80053; 84443; 85027; 93005

== ENCOUNTER → 2020-08-25 | Outpatient (CLI) | payer MEDICARE ==
[2020-08-25 08:33] LABS: CHOLESTEROL 162 MG/DL (< 200); HDL CHOLESTEROL 41 MG/DL (40-60); TRIGLYCERIDES 82 MG/DL (<150); VLDL CHOLESTEROL 16 MG/DL (5-40)
== END ==
LOC: LAB 07:59
PROVIDERS: ATTEND Family Medicine
DX: I10 Essential (primary) hypertension (principal); F17.200 Nicotine dependence, unspecified, uncomplicated
CPT/HCPCS: 36415; 80061